=== PATIENT | female | born 1945 | race Caucasian/White ===

== ENCOUNTER 2021-12-17 16:41 | Outpatient (CLI) | payer MEDICARE, BC, SELFPAY ==
--- OUTSIDE RECORDS SUMMARY | 2021-12-17 07:48 | XMS_ITS | Encounter Summary ---
:1945 Author Organization [facility] Address [address] [address] Care Team Providers Name Role Phone Corey Josue MD Primary Care Provider [phone] Reason for Visit Auth/Cert Specialty Diagnoses / Procedures Referred By Contact Refer red To Contact Surgery Diagnoses HYPERONICITY OF THE BLADDER AND BATTERY EXCHANGE [facility] Procedures REPLACE GENERATOR STIMULATOR (LOCATION) [address] [place] [address] Phone: Referral ID Status Reason Start Date Expiration Date Visits Requ ested Visits Authorized [id number] 1 1 Encounter Details Date Type Department Care Team Description 01/13/[address] [facility] Allen Avendano I NTERSTIM GENERATOR [place] [facility] [address] [place] [address] [place] [address] (Wo rk) Surgery Details Date/Time Status Location OR Service Patient Case Class Case Type Trauma Class Case? 01/13/18 11:30 Posted Z SH SD SD 23 Urology Same Day AM Surgery Panel 1 Procedure LRB Anes Op Region Wound Class Commen ts INTERSTIM GENERATOR REPLACEMENT Left MAC with Local Sacrum I-Clean Surgeon Surgeon Role Service Panel Allen Avendano MD Primary Urology 1 Special Needs SENT TO [facility] NO CARD BUILT documented in this encounter Social History Tobacco Use Types Packs/Day Years Used Date Never Smoker Smokeless Tobacco: Never Used Alcohol Use Standard Drinks/Week Comments Yes 0 (1 standard drink = 0.6 oz pure alcoho l) rare Alcohol Habits Answer Date Recorded How often do you have a drink containing alcohol? Not asked How many drinks containing alcohol do you have on a typical Not asked day when you are drinking? How often do you have six or more drinks on one occasion? No t asked Comment: rare 01/12/2018 Sex Assigned at Date Recorded Not on file documented as of this encounter Last Filed Vital Signs Vital Sign Reading Time Taken Comments Blood Pressure 149/81 01/13/2018 2:00 PM CDT Pulse - - Temperature 36.7 ??C (98 ??F) 01/13/2018 1:00 PM CDT Respiratory Rate 20 01/13/2018 2:00 PM CDT Oxygen Saturation 97% 01/13/2018 2:00 PM CDT Inhaled Oxygen Concentration - - Weight 93.9 kg (207 lb) 01/13/2018 10:17 AM CDT Height 167.6 cm (5' 6) 01/13/2018 10:17 AM CDT Body Mass Index 33.41 01/13/2018 10:17 AM CDT documented in this encounter Discharge Instructions Discharge InstructionsWinter Ling RN - 01/13/2018 12:59 PM CDT Same Day Surgery Discharge Instructions for Sedation and General Anesthesia ?? It's not unusual to feel dizzy, light-headed or faint for up to 24 hours after surgery or while taking pain medication. If you have these symptoms: sit for a few minutes before standing and have someone assist you when you get up to walk or use the bathroom. ?? You should rest and relax for the next 24 hours. We recommend you make arrangements to have an adult stay with you for at least 24 hours after your discharge. Avoid hazardous and strenuous activity. ?? DO NOT DRIVE any vehicle or operate mechanical equipment for 24 hours following the end of your surgery. Even though you may feel normal, your reactions may be affected by the medication you have received. ?? Do not drink alcoholic beverages for 24 hours following surgery. ?? Slowly progress to your regular diet as you feel able. It's not unusual to feel nauseated and/or vomit after receiving anesthesia. If you develop these symptoms, drink clear liquids (apple juice, maddie faina, broth, 7-up, etc. ) until you feel better. If your nausea and vomiting persists for 24 hours, please notify your surgeon. ?? All narcotic pain medications, along with inactivity and anesthesia, can cause constipation. Drinking plenty of liquids and increasing fiber intake will help. ?? For any questions of a medical nature, call your surgeon. ?? Do not make important decisions for 24 hours. ?? If you had general anesthesia, you may have a sore throat for a couple of days related to the breathing tube used during surgery. You may use Cepacol lozenges to help with this discomfort. If it worsens or if you develop a fever, contact your surgeon. ?? If you feel your pain is not well managed with the pain medications prescribed by your surgeon, please contact your surgeon's office to let them know so they can address your concerns. InterStim Discharge Instruction General information: ?? Your incision may be sore and tender for 2 weeks. ?? You may shower starting tomorrow ?? Your incision was closed using a liquid adhesive. It's important not to scratch, rub or pick the film. Also, do not apply lotions or creams to the area. Activity: ?? Reduce normal daily activity for the first week. No excessive bending, twisting or bouncing. ?? Walking and light exercise is permissible. ?? No lifting, pulling or pushing objects heavier than 10 lbs. No vacuuming, carrying groceries or laundry baskets for 3-4 weeks. ?? No strenuous exercise for 3-4 weeks ?? No sexual intercourse for 1-2 weeks. Contact your surgeon for the following: ?? A temperature above 101??F. ?? Pain not relieved by medication ?? Rash ?? Nausea or vomiting ?? Swelling, excessive drainage, warmth at the incisional site Follow up care: The [employer] cash applications representative will instruct you about your InterStim device. Please contact them withany questions. Your first follow up appointment will be with a nurse in your surgeon's office in 1-2weeks. You will then see your surgeon for a follow up in one month. documented in this encounter Medications at Time of Discharge Medication Sig Dispensed Refills Start Date End Date ASPIRIN PO Take 81 mg by mouth 0 daily CLONIDINE HCL PO Take 0.5-1 mg by 0 mouth 2 times daily estradiol (VAGIFEM) [address] Place 10 mcg 0 MCG TABS vaginal tablet vaginally twice a week fluticasone (FLOVENT Inhale 1 puff into 0 HFA) 220 MCG/ACT the lungs 2 times Inhaler daily lisinopril-hydrochlorot Take 1 tablet by 0 hiazide mouth daily (PRINZIDE/ZESTORETIC) 20-25 MG per tablet MIRABEGRON ER PO Take 50 mg by mouth 0 daily oxyCODONE IR Take 1 tablet (5 mg) 12 tablet 0 01/13/2018 (ROXICODONE) 5 MG by mouth every 6 tabletIndications: OAB hours as needed for (overactive bladder) pain SIMVASTATIN PO Take 40 mg by mouth 0 At Bedtime VITAMIN D, Take 1,000 Units by 0 CHOLECALCIFEROL, PO mouth daily zinc gluconate 50 MG Take 50 mg by mouth 0 tablet daily ZOLPIDEM TARTRATE PO Take 10 mg by mouth 0 nightly as needed for sleep cephALEXin (KEFLEX) 500 Take 1 capsule (500 15 capsule 0 01/18/2018 MG capsuleIndications: mg) by mouth 3 times OAB (overactive daily for 5 days bladder) documented as of this encounter Nursing Notes Winter Ling RN - 01/13/2018 1:28 PM CDT PNDS met, po per I&O sheet. Pt dressed, up in recliner and transported to Phase 2. documented in this encounter Miscellaneous Notes Op Note - Allen Avendano MD - 01/13/2018 1:06 PM CDT Procedure Date: 01/13/2018 PROCEDURE: InterStim generator replacement. PREOPERATIVE DIAGNOSIS: Overactive bladder, failing InterStim battery. POSTOPERATIVE DIAGNOSIS: Overactive bladder, failing InterStim battery. OPERATIVE NOTE: Informed consent was obtained from the patient. She was brought to the operating room, placed on the operating room table in the prone position. Pressure points were well padded and given intravenous sedation. A sterile prep and drape were applied. A surgical timeout was taken. The area over the InterStim generator was infiltrated with 0.25% Marcaine with epinephrine. Once adequate analgesia had been obtained, a skin incision was made. Dissection carried down to the generator. The pocket was opened, and the generator was delivered out through the wound. The lead was disconnected from the generator, cleaned and then placed into the new generator and secured with the targeting screwdriver. The new generator was placed back into the pocket after checking for hemostasis, which was excellent and impedance testing was done showing good readings. The pocket was closed with a running 2-0Vicryl and then the skin was closed with a 4-0 undyed Vicryl subcuticular stitch. Sterile Tegaderm was applied and the procedure was terminated at that point. She tolerated the procedure well and therewere no complications. BLOOD LOSS: 2 mL or less. Sponge counts and needle counts correct prior to and after closure. She will be discharged from the recovery room, should follow up with her local provider next for Tegaderm removal and see Riki in our office in 4-6 weeks for programming check. ALLEN AVENDANO MD MT: [place] Name: SUJATA KELLER MRN: [id number] Account: [id number] : 1945 Procedure Date: 01/13/2018 Document: [id number] Brief Op Note - Allen Avendano MD - 01/13/2018 1:00 PM CDT [facility] Urology Brief Operative Note Pre-operative diagnosis: HYPERONICITY OF THE BLADDER AND BATTERY EXCHANGE Post-operative diagnosis: Same Procedure: Procedure(s): INTERSTIM GENERATOR REPLACEMENT Surgeon: Allen Avendano MD, MD Janitor Caretaker(s): none Anesthesia: Local anesthesia with sedation Estimated blood loss: Minimal Total IV fluids: (See anesthesia record) Blood transfusion: No transfusion was given during surgery Total urine output: None Drains: None Specimens: None Implants: New interstim generator Findings: See dictation. Complications: None Condition: Stable Comments: See dictated operative report for full details. Allen Avendano MD documented in this encounter Plan of Treatment Not on filedocumented as of this encounter Procedures Procedure Name Priority Date/Time Associated Diagnosis Comme nts REPLACEMENT, PULSE 01/13/2018 12:05 PM HYPERONICITY OF THE GENERATOR, NEUROSTIMULATOR CDT BLADDER AND BA TTERY EXCHANGE Special Needs SENT TO [facility] - NO CARD BUILT LAB RESULT - HIM SCAN 12/23/2017 12:00 AM CDT EKG CARDIAC - HIM SCAN 12/23/2017 12:00 AM CDT documented in this encounter Results LAB RESULT - HIM SCAN (12/23/2017 12:00 AM CDT) Specimen (Source) Anatomical Location Collection Method / Collectio n Time Received Time / Laterality Volume 12/23/2017 Narrative This result has an attachment that is no t available. Provider Outside NON-BEAKER LAB TESTING EKG CARDIAC - HIM SCAN (12/23/2017 12:00 AM CDT) Specimen (Source) Anatomical Location Collection Method / Collectio n Time Received Time / Laterality Volume 12/23/2017 Narrative This result has an attachment that is no t available. Provider Outside ECG ORDERABLES documented in this encounter Visit Diagnoses Not on filedocumented in this encounter Administered Medications Inactive Administered Medications - up to 3 most recent administrations Medication Order MAR Action Action Date Dose Rate Site bupivacaine 0.25 % - Given 01/13/2018 12:47 3 mLs Operative EPINEPHrine 1:200,000 PM CDT Sit e/Surgical Site injection PRN, Starting on Thu01/13/18 at 1247, Intra-procedure fentaNYL (PF) (SUBLIMAZE) injection 25-5 0 mcg 25-50 mcg, Intravenous, EVERY 2 MIN PRN, other, acute pain while in PACU., Starting on Thu01/13/18 at 1257, MAX cumulative dose = 250 mcg. Use Fentanyl initially, as a short acting agent for acute pain cont rol. If insufficient, or a longer acting agent is needed, begin Morphine or [place] morphone if ordered. For ordered IV doses 1-100 mcg give IV Push undiluted over a minimum of 3-5 minutes., PACU fentaNYL (PF) (SUBLIMAZE) injection 25-5 0 mcg 25-50 mcg, Intravenous, EVERY 15 MIN PRN, other, acute pain while in Phase II, Starting on Thu01/13/18 at 1257, Indica tions: Sedated State, MAX cumulative dose = 250 mcg. Use Fentanyl initially, as a sh ort acting agent for acute pain control. If insufficient, or a longer acting agent i s needed, begin Morphine or Hydromorphone if ordered. For ordered IV doses 1-100 m cg give IV Push undiluted over a minimum of 3-5 minutes., Phase ll HYDROmorphone (PF) (DILAUDID) injection 0.3-0.5 mg 0.3-0.5 mg, Intravenous, EVERY 10 MIN NC N, other, acute pain.?May administer if Respiratory Rate is greater than 10, Sta rting on Thu01/13/18 at 1257, If fentanyl is also ordered, use HYDROmorphone if pa in control insufficient with fentanyl or a longer acting agent is needed. Max cumulative dose = 2 mg For ordered IV doses 0.1-4 mg give IV Push undiluted. Adminis ter each 2mg over 2-5 minutes., PACU/Phase II lactated ringers infusion at 100 mL/hr, Intravenous, CONTINUOUS, Continue until IV catheter is weaned, PACU/Phase II, Starting on Thu01/13/18 at 1300, Until Thu01/13/18 at 1619 meperidine (DEMEROL) injection 12.5 mg 12.5 mg, Intravenous, EVERY 15 MIN PRN, post anesthesia shivering, Starting on Thu01/13/18 at 1257, For 2 doses, Give IV P ush undiluted. 10-40 mg over 2-3 minutes, up to 125 mg over 3-15 minutes, PACU/Phase II naloxone (NARCAN) injection 0.1-0.4 mg 0.1-0.4 mg, Intravenous, EVERY 2 MIN PRN , opioid reversal, Starting on Thu01/13/18 at 1257, For 24 hours, For apnea or imminent respirato ry arrest: give 0.4 mg IV undiluted Q 2 minutes PRN until desired degree of reversal is obtained, stop opioid and notify provider. Continue monitoring until dischar ge are criteria met for a minimum of 2 hours. For severe sedation, decrease in respiratory depth, quality or Respiratory Rate greater than 8: give 0. 1 mg IV Q 2 minutes x 3 doses, stop opioid and notify provider. Try to minimize reversal of analg esia especially in end-of-life patients. Continue monitorin g until discharge criteria are met for a minimum of 2 hours. For ordered IV doses 0.1-2mg give IVP. Give each 0.4mg over 15 seconds in emergency situations. For non -emergent situations further dilute in 9mL of NS to facilitate titration of response., PACU/Phase II ondansetron (ZOFRAN) injection 4 mg 4 mg, Intravenous, EVERY 30 MIN PRN, neli sea, vomiting, Administer over 2-5 Minutes, Starting on Thu01/13/18 at 1257, For 2 doses, MAX total dose = 8 mg, including OR dosing. This is step 1 of nausea and vomiting manageme nt. If not resolved in 15 minutes, then go to step 2 [prochlorpera zine (COMPAZINE) if ordered]. Irritant. For ordered IV doses 0.1-4 mg, give IV Push undiluted over 2-5 minutes., PACU/Phase II ondansetron (ZOFRAN-ODT) ODT tab 4 mg 4 mg, Oral, EVERY 30 MIN PRN, nausea, vo miting, Starting on Thu01/13/18 at 1257, For 2 doses, MAX total dose = 8 mg, incl uding OR dosing. This is step 1 of nausea and vomiting management. If not resolved in 15 minutes , then go to step 2 [prochlorperazine (COMPAZINE) if ordered ]. With dry hands, peel back foil backing and gently remove tablet; do not push oral disintegrat ing tablet through foil backing; administer immediately on tongu e and oral disintegrating tablet dissolves in seconds; then swallow with saliva; liquid not requi red., PACU/Phase II ORAL Pain Medications - may administer a s ordered by surgeon for take home use CONTINUOUS PRN, Starting on Thu01/13/18 at 1257, Until Thu01/13/18 at 1619, May administer oral pain medications as ordered by surgeon for take home use. Discontinue IV pain medication prior to administration of oral pain medication., PACU/Phase II prochlorperazine (COMPAZINE) injection 5 mg 5 mg, Intravenous, EVERY 6 HOURS PRN, nausea, vomiting , Administer over 1-2 Minutes, Starting on Thu01/13/18 at 125 7, This is Step 2 of nausea and vomiting management. If nausea not resolved in 15 minutes, give metoclopramide (REGLAN) if ordered [step 3 of nausea and vomiting m anagement]. For ordered IV doses 0.1-10 mg, give IV Push undiluted. Each 5mg over 1 minute., PACU/ Phase II sterile water (bottle) Given 01/13/2018 12:26 PM 1,000 mLs Operative irrigation CDT Site/Surgical S ite PRN, Intra-procedure, Starting on Thu01/13/18 at 1226, Until Thu01/13/18 at 1328 documented in this encounter Active and Recently Administered Medications Times are shown in CDT. Scheduled Medication Order 01/11/2018 01/12/2018 01/13/2018 ceFAZolin (ANCEF) intermittent infusion 2 g in 100 mL dextrose PRE-MIX (COMPLETED) 1222 (Given - Provid er: Jeanne Reynolds, COUPON CLERK [employer]) 2 g, Intravenous, PRE-OP/PRE-PROCEDURE, Starting Thu01/13/18 at 1010, For 1 dose, Give first dose within 1 hour PRIOR to incision. If patient weight is greater than or equal to 120 kg increase dose to 3 g., Indications: Perioperative Pharmacoprophylaxis, Pre-proced ure oxyCODONE IR (ROXICODONE) tablet 5 mg 1400 (Canceled Entry - Provider: Orders Generic Provider - Comment: Automatically canceled at discontinue of medication order) 5 mg, Oral, ONCE, Thu01/13/18 at 1400, For 1 dose, May administer ONCE as needed for pain control or improvement in physical function.??Notify provider to assess for uncontrolled pain or?? analgesic side effects., Post-procedure Continuous Medication Order 01/11/2018 01/12/2018 01/13/2018 lactated ringers infusion 1300 ( Canceled Entry - Provider: Orders Generic Provider - Comment: Automatically canceled at discontinue of medication order) at 100 mL/hr, Intravenous, CONTINUOUS, C ontinue until IV catheter is weaned, PACU/Phase II, Starting Thu01/13/18 at 1300, Until Thu01/13/18 at 1619 PRN Medication Order 01/11/2018 01/12/2018 01/13/2018 bupivacaine 0.25 % - EPINEPHrine 1:200,000 injection (CANCELED) 1247 (Given - Provider: Allen Avendano MD) PRN, Starting Thu01/13/18 at 1247, Intra-procedure fentaNYL (PF) (SUBLIMAZE) injection 25-50 mcg 25-50 mcg, Intravenous, EVERY 2 MIN PRN, Starting Thu01/13/18 at 1257, other, acute pain while in PACU., MAX cumulative dose = 250 mcg. Use Fentanyl initially, as a short acting agent for acute pain co ntrol. If insufficient, or a longer acti ng agent is needed, begin Morphine or Hydromorphone if ordered. For ordered IV doses 1-100 mcg give IV Push undiluted over a minimum of 3-5 minutes., PACU fentaNYL (PF) (SUBLIMAZE) injection 25-50 mcg 25-50 mcg, Intravenous, EVERY 15 MIN PRN , Starting Thu01/13/18 at 1257, other, acute pain while in Phase II, MAX cumulative dose = 250 mcg. Use Fentanyl initially, as a short acting agent for acute sravani n control. If insufficient, or a longer acting agent is needed, begin Morphine or Hydromorphone if ordered. For ordered IV doses 1-100 mcg give IV Push undiluted over a minimum of 3-5 minutes., Phase ll HYDROmorphone (PF) (DILAUDID) injection 0.3-0.5 mg 0.3-0.5 mg, Intravenous, EVERY 10 MIN NC N, Starting Thu01/13/18 at 1257, Until Thu01/13/18 at 1619, other, acute pain.?May administer if Respiratory Rate is greater than 10, PACU/Phase II, If fenta nyl is also ordered, use HYDROmorphone i f pain control insufficient with fentanyl or a longer acting agent is needed. Max cumulative dose = 2 mg For ordered IV doses 0.1-4 mg give IV Push undiluted. Administer each 2mg over 2-5 minutes. meperidine (DEMEROL) injection 12.5 mg 12.5 mg, Intravenous, EVERY 15 MIN PRN, 2 doses, Starting Thu01/13/18 at 1257, Until Thu01/13/18 at 1619, post anesthesia shivering, PACU/Phase II, Give IV Push undiluted. 10-40 mg over 2-3 minutes, up to 125 mg over 3-15 minutes naloxone (NARCAN) injection 0.1-0.4 mg 0.1-0.4 mg, Intravenous, EVERY 2 MIN PRN , opioid reversal, Starting Thu01/13/18 at 1257, For 24 hours, For apnea or imminent respiratory arrest: give 0.4 mg IV undiluted Q 2 minutes PRN until desired d egree of reversal is obtained, stop opio id and notify provider. Continue monitoring until discharge are criteria met for a minimum of 2 hours. For severe sedation, decrease in respiratory depth, quality or Respiratory Rate greater than 8: giv e 0.1 mg IV Q 2 minutes x 3 doses, stop opioid and notify provider. Try to minimize reversal of analgesia especially in end-of-life patients. Continue monitoring until discharge criteria are met for a m inimum of 2 hours. For ordered IV doses 0.1-2mg give IVP. Give each 0.4mg over 15 seconds in emergency situations. For non-emergent situations further dilute in 9 mL of NS to facilitate titration of response., PACU/Phase II ondansetron (ZOFRAN) injection 4 mg(Linked Group 1) 4 mg, Intravenous, EVERY 30 MIN PRN, neli sea, vomiting, Administer over 2-5 Minutes, Starting Thu01/13/18 at 1257, For 2 doses, MAX total dose = 8 mg, including OR dosing. This is step 1 of nausea and v omiting management. If not resolved in 1 5 minutes, then go to step 2 [prochlorperazine (COMPAZINE) if ordered]. Irritant. For ordered IV doses 0.1-4 mg, give IV Push undiluted over 2-5 minutes., PACU/Phase II ondansetron (ZOFRAN-ODT) ODT tab 4 mg(Linked Group 1) 4 mg, Oral, EVERY 30 MIN PRN, nausea, vo miting, Starting Thu01/13/18 at 1257, For 2 doses, MAX total dose = 8 mg, including OR dosing. This is step 1 of nausea and vomiting management. If not resolved in 15 minutes, then go to step 2 [prochl orperazine (COMPAZINE) if ordered]. With dry hands, peel back foil backing and gently remove tablet; do not push oral disintegrating tablet through foil backing; administer immediately on tongue and ora l disintegrating tablet dissolves in seconds; then swallow with saliva; liquid not required., PACU/Phase II ORAL Pain Medications - may administer as ordered by surgeon for take home use CONTINUOUS PRN, Starting Thu01/13/18 at 1257, Until Thu01/13/18 at 1619, May administer oral pain medications as ordered by surgeon for take home use. Discontinue IV pain medication prior to administration of oral pain medication., PACU/Phase II prochlorperazine (COMPAZINE) injection 5 mg 5 mg, Intravenous, EVERY 6 HOURS PRN, na usea, vomiting, Administer over 1-2 Minutes, Starting Thu01/13/18 at 1257, This is Step 2 of nausea and vomiting management. If nausea not resolved in 15 minutes , give metoclopramide (REGLAN) if ordere d [step 3 of nausea and vomiting management]. For ordered IV doses 0.1-10 mg, give IV Push undiluted. Each 5mg over 1 minute., PACU/Phase II sterile water (bottle) irrigation (CANCELED) 1226 (Given - Provider: Allen Avendano MD) PRN, Intra-procedure, Starting Thu01/13/18 at 1226, U ntil Thu01/13/18 at 1328 Linked Groups Order Group 1: ondansetron (ZOFRAN-ODT) ODT tab 4 mgJump to med 4 mg, Oral, EVERY 30 MIN PRN, nausea, vo miting, Starting Thu01/13/18 at 1257, For 2 doses
MAX total dose = 8 mg, including OR dosing. This is step 1 of nausea and vomiting management.&nbsp ; If not resolved in 15 minutes, th en go to step 2 [prochlorperazine (COMPAZINE) if ordered]. With dry hands, peel back foil backing and gently remove tablet; do not push oral disinteg rating tablet through foil backing; admi nister immediately on tongue and oral disintegrating tablet dissolves in seconds; then swallow with saliva; liquid not required.
PACU/Phase II Or ondansetron (ZOFRAN) injection 4 mgJump to med 4 mg, Intravenous, EVERY 30 MIN PRN, neli sea, vomiting, Administer over 2-5 Minutes, Starting Thu01/13/18 at 1257, For 2 doses
MAX total dose = 8 mg, including OR dosing. This is step 1 of naus ea and vomiting management. I f not resolved in 15 minutes, then go to step 2 [prochlorperazine (COMPAZINE) if ordered]. Irritant. For ordered IV doses 0.1-4 mg, give IV Push undiluted over 2-5 minutes.
PACU/Phase II documented in this encounter Care Teams Catalytic Case Operator Relationship Specialty Start Date End Date Corey Josue MD PCP - General Emergency Medicine 12/30/17 [facility] [address] [place] [address] documented as of this encounter
--- OUTSIDE RECORDS SUMMARY | 2021-12-17 07:48 | XMS_ITS | Clinical Summary ---
:1945 Author Organization [place] Address Replaced by [facility] [place] [address] Care Team Providers Name Role Phone Corey Josue MD Primary Care Provider [phone] Allergies Active Allergy Reactions Severity Noted Date Comments Adhesive Tape Itching 01/12/2018 Nickel Itching 01/12/2018 Thimerosal Itching 01/12/2018 Medications Medication Sig Dispensed Refills Start Date End Date Status lisinopril-hydrochlor Take 1 tablet by 0 Active othiazide mouth daily (PRINZIDE/ZESTORETIC) 20-25 MG per tablet ZOLPIDEM TARTRATE PO Take 10 mg by mouth 0 Active nightly as needed for sleep MIRABEGRON ER PO Take 50 mg by mouth 0 Active daily estradiol (VAGIFEM) Place 10 mcg 0 Active 10 MCG TABS vaginal vaginally twice a tablet week CLONIDINE HCL PO Take 0.5-1 mg by 0 Active mouth 2 times daily SIMVASTATIN PO Take 40 mg by mouth 0 Active At Bedtime zinc gluconate 50 MG Take 50 mg by mouth 0 Active tablet daily VITAMIN D, Take 1,000 Units by 0 Active CHOLECALCIFEROL, PO mouth daily ASPIRIN PO Take 81 mg by mouth 0 Active daily fluticasone (FLOVENT Inhale 1 puff into 0 Active HFA) 220 MCG/ACT the lungs 2 times Inhaler daily oxyCODONE IR Take 1 tablet (5 12 tablet 0 01/13/2018 Active (ROXICODONE) 5 MG mg) by mouth every tabletIndications: 6 hours as needed OAB (overactive for pain bladder) Social History Tobacco Use Types Packs/Day Years [...] Assigned at Date Recorded Not on file Last Filed Vital Signs Vital Sign Reading [...] Mass Index 33.41 01/13/2018 10:17 AM CDT Plan of Treatment Not on file Medical Devices Implanted Type Area Engineering Model Maker Device Shelf Model / Identifier Expiration Serial / Date Lot Stimulator Neuro Inter-Stim [id number] Neurology Left: [employer] 02/26/2019 3058 / Implanted: Qty: 1 on 01/13/2018 by Allen Nye MD at [facility] device Sacrum [id number] / Explanted Type Area Engineering Model Maker Device Shelf Model / Identifier Expiration Serial / Date Lot Interstim Neurotransmitter Left: Explanted: Qty: 1 on 01/13/2018 at [facility] Sacrum Insurance Payer Benefit Plan / Subscriber ID Effective Dates Phone Addre ss Type Group MEDICARE MEDICARE [id number] 2017-Prese [phone] ATTN CL AIMS Medicare nt 0 [address] [place] [address] BCBS BCBS FEDERAL [id number] 2015-Nadir [phone] [address] [address] PPO EMPLOYEE t 0 [facility] [place] [address] Care Teams Head Neck Surgeon Relationship Specialty Start Date End Date Corey Josue MD PCP - General Emergency Medicine 12/30/17 [facility] [address] [place] [address]
--- OUTSIDE RECORDS SUMMARY | 2021-12-17 07:48 | XMS_ITS | Encounter Summary ---
:1945 Author Organization [place] Address [address] [facility] [place] [address] Care Team Providers Name Role Phone Corey Josue MD Primary Care Provider [phone] Reason for Visit Auth/Cert Specialty Diagnoses / Procedures Referred By Contact Refer red To Contact Surgery Diagnoses HYPERONICITY OF THE BLADDER AND BATTERY EXCHANGE Sh Pe riop Services Procedures REPLACE GENERATOR STIMULATOR (LOCATION) [address], [address] [place] [address] Phone: Referral ID Status Reason Start Date Expiration Date Visits Requ ested Visits Authorized [id number] 1 1 Encounter Details Date Type Department Care Team Description 01/13/2018 Hospital Encounter [facility] Renetta Avendano OAB (overactive [place] Phase II MD Jan bladder) (Primary [address] [facility] D[facility]) [place] [facility] [id number] [address] [phone] [address] [place] [address] Social History Tobacco Use Types Packs/Day Years [...] the incisional site Follow up care: The [employer] employee's representative will instruct you about your InterStim [...] this encounter Miscellaneous Notes Op Note - Renetta Avendano MD - 01/13/2018 1:06 PM CDT [...] office in 4-6 weeks for programming check. RENETTA AVENDANO MD MT: EC Name: SUJATA KELLER MRN: [id number] Account: [id number] : 1945 Procedure Date: 01/13/2018 Document: [id number] Brief Op Note - Renetta Avendano MD - 01/13/2018 1:00 PM CDT [facility] [place] Brief Operative Note Pre-operative diagnosis: HYPERONICITY OF THE BLADDER AND BATTERY EXCHANGE Post-operative diagnosis: Same Procedure: Procedure(s): INTERSTIM GENERATOR REPLACEMENT Surgeon: Renetta Avendano MD, MD Mat Gauger(s): none Anesthesia: Local anesthesia with sedation Estimated blood loss: Minimal Total IV fluids: (See anesthesia record) Blood transfusion: No transfusion was given during surgery Total urine output: None Drains: None Specimens: None Implants: New interstim generator Findings: See dictation. Complications: None Condition: Stable Comments: See dictated operative report for full details. Renetta Avendano MD documented in this encounter Plan of Treatment Not on filedocumented as of this encounter Procedures Procedure Name Priority Date/Time Associated Diagnosis Comme nts REPLACEMENT, PULSE 01/13/2018 12:05 PM HYPERONICITY OF THE GENERATOR, NEUROSTIMULATOR CDT BLADDER AND BA TTERY EXCHANGE Special Needs SENT TO [facility] - NO CARD BUILT LAB RESULT - [...] ORDERABLES documented in this encounter Visit Diagnoses Diagnosis OAB (overactive bladder) - Primary Hypertonicity of bladder documented in this encounter Administered Medications Inactive Administered Medications - up to 3 most recent administrations Medication Order MAR Action Action Date Dose Rate Site fentaNYL (PF) (SUBLIMAZE) injection 25-5 0 mcg 25-50 mcg, Intravenous, EVERY 2 MIN PRN, other, acute pain while in PACU., Starting on Thu01/13/18 at 1257, MAX cumulative dose = 250 mcg. Use Fentanyl initially, as a short acting agent for acute pain cont rol. If insufficient, or a longer acting agent is needed, begin Morphine or [place] morphone if ordered. For ordered IV doses [...] mg 0.3-0.5 mg, Intravenous, EVERY 10 MIN MS N, other, acute pain.?May administer if Respiratory [...] 5mg over 1 minute., PACU/ Phase II documented in this encounter Active and Recently Administered Medications Times are shown in CDT. Scheduled Medication Order 01/11/2018 01/12/2018 01/13/2018 ceFAZolin (ANCEF) intermittent infusion 2 g in 100 mL dextrose PRE-MIX (COMPLETED) 1222 (Given - Provid er: Jeanne Reynolds, DEALERSHIP MANAGER PSYCHIATRIC NURSE) 2 g, Intravenous, PRE-OP/PRE-PROCEDURE, Starting Thu01/13/18 at [...] 1:200,000 injection (CANCELED) 1247 (Given - Provider: Renetta Avendano MD) PRN, Starting Thu01/13/18 at 1247, [...] mg 0.3-0.5 mg, Intravenous, EVERY 10 MIN MS N, Starting Thu01/13/18 at 1257, Until Thu01/13/18 [...] sea, vomiting, Administer over 2-5 Minutes, Starting 01/13/18 at 1257, For 2 doses, MAX total [...] (bottle) irrigation (CANCELED) 1226 (Given - Provider: Renetta Avendano MD) PRN, Intra-procedure, Starting Thu01/13/18 at [...] II documented in this encounter Care Teams Design Transferrer Relationship Specialty Start Date End Date Corey Jsoue MD PCP - General Emergency Medicine 12/30/17 [facility] [address] [place] [address] documented as of this encounter
--- OUTSIDE RECORDS SUMMARY | 2021-12-17 07:48 | XMS_ITS ---
:1945 Author Care Team Providers Name Role Phone ADDIE BAEZ MD Primary Care Provider [phone] Allergies Code Code System Name Reaction Severity Status Onset NKDA ? Medications Name Status Start Date Stop Date ? ? albuterol Active ? Not available clonidine HCl 0.2 mg tablet Active ? Not available famotidine 20 mg tablet Active ? Not avai lable Flovent HFA 110 mcg/actuation aerosol inhaler Active ? Not available fluticasone propionate 50 mcg/actuation nasal Active ? Not available spray,suspension fluvoxamine 100 mg tablet Active ? Not av ailable Fluzone High-Dose (PF) 180 mcg/0.5 mL intramuscular Acti ve ? Not available syringe Fluzone High-Dose Quad (PF) 240 mcg/0.7 mL IM Active ? Not available syringe Gemtesa 75 mg tablet Active ? Not availab le Take 1 tablet every day by oral route. lisinopril 20 mg-hydrochlorothiazide 25 mg tablet Active ? Not available metformin 500 mg tablet Active ? Not avai lable montelukast 10 mg tablet Active ? Not dhara ilable Myrbetriq 50 mg tablet,extended release Active ? Not available Shingrix (PF) 50 mcg/0.5 mL intramuscular suspension, kit Active ? Not available simvastatin 40 mg tablet Active ? Not dhara ilable zolpidem 10 mg tablet Active ? Not availa ble Problems Name Status Onset Date Source ? Urge Incontinence of Urine Active 06/01/2018 Histo ry Increased Frequency of Urination Active 06/01/2018 History Overactive Bladder Active 06/01/2018 History Disorder Due to Type 2 Diabetes Mellitus Active 019 History Hypertensive Disorder Active 10/19/2018 History Procedures Date Name Performed by ? ? Colonoscopy Information not avai lable Notes: none as of 12-14-20 Results Lab Results None recorded. Past Encounters 07/03/2020 Increased Frequency of Urination; Overac tive Bladder Eliana Donaldson, PAC: [address] [place] [address], Ph. Social History Tobacco Smoking Status Never Smoker Vaccine List Vaccine Type pneumococcal polysaccharide PPV23 06/26/2014 Plan of Care Reminders Provider Appointments None recorded. ? ? Lab None recorded. ? ? Referral None recorded. ? ? Procedures None recorded. ? ? Surgeries None recorded. ? ? Imaging None recorded. ? ? Vitals 07/03/2020 09:20AM ESTABLISHED 20 Height Weight BMI 5 ft 6 in 210 lbs 33.9 kg/m2 12/01/2019 09:30AM PROCEDURE 30 Height 5 ft 6 in 11/02/2019 09:00AM PROCEDURE 30 Height 5 ft 6 in 09/30/2019 09:00AM PROCEDURE 30 Height Weight BMI 50 ft 6 in 200 lbs 0.4 kg/m2
--- OUTSIDE RECORDS SUMMARY | 2021-12-17 07:48 | XMS_ITS | Clinical Summary ---
:1945 Author Organization [facility] [place] [address] Care Team Providers Name Role Phone Corey Josue MD Primary Care Provider Allergies Active Allergy Reactions Severity Noted Date Comments Adhesive Itching 09/06/2012 Nickel Itching 09/18/2012 Metal allergy t o cheap earrings, ears itch. Unknown-Follow Up Needed Itching 09/18/2012 the rmerosol (Include Details In Comments) Medications Medication Sig Dispensed Refills Start Date End Date Status cloNIDine (CATAPRES) Take 0.2 mg by 0 Active 0.2 mg tablet mouth 2 times daily. FLUTICASONE PROPIONATE Inhale 2 Puffs by 0 Active (FLOVENT HFA INHL) mouth 2 times daily. Levothyroxine 50 mcg Take 1 Cap by 0 Active cap mouth once daily. zolpidem (AMBIEN) 10 mg Take 10 mg by 0 Active tablet mouth at bedtime if needed. estradiol (VAGIFEM) 10 Insert 10 mcg 0 Active mcg tab vaginal tablet into the vagina once daily. Twice a week as directed aspirin chewable 81 mg Take 81 mg by 0 Active chewable tablet mouth once daily with a meal. Take 1 tablet by mouth daily cholecalciferol Take 2,000 Units 0 Active (VITAMIN D3) 1,000 unit by mouth once capsule daily. albuterol (PROVENTIL; Inhale 2.5 mg via 0 Active VENTOLIN) 5 mg/mL a nebulizer every (0.5%) neb solution 4 hours if needed. lisinopril-hydrochlorot Take 1 tablet by 0 Active hiazide, 20-25 mg, mouth once daily. (PRINZIDE, ZESTORETIC) 20-25 mg per tablet mirabegron Take 50 mg by 0 Activ e EXTENDED-release mouth once daily. (MYRBETRIQ) 50 mg tablet venlafaxine (EFFEXOR Take 150 mg by 0 Active XR) 150 mg mouth once daily Extended-Release with a meal. capsule zinc gluconate 50 mg Take 50 mg by 0 Active tablet mouth once daily. simvastatin (ZOCOR) 40 Take 40 mg by 0 Active mg tablet mouth at bedtime. escitalopram oxalate Take 10 mg by 3 07/30/2017 Active (LEXAPRO) 10 mg tablet mouth once daily. fluvoxaMINE (LUVOX) 100 Take 1 tablet by 0 0 Active mg tablet mouth at bedtime. Take one and one half capsule daily Active Problems Problem Noted Date History of right breast cancer 10/20/2019 Immunizations Name Administration Dates Next Due Pneumococcal, Unspecified 01/13/2012 Family History Medical History Relation Name Comments Atrial fibrillation Brother Cancer-prostate Brother Cancer-ovarian Mother Cancer-breast No Family History Cancer-colon No Family History Cancer-pancreatic No Family History Melanoma No Family History Relation Name Status Comments Brother Daughter MS Mother Social History Tobacco Use Types Packs/Day Years Used Date Never Smoker Smokeless Tobacco: Never Used Alcohol Use Standard Drinks/Week Comments Yes 1 (1 standard drink = 0.6 oz pure alcoho l) occasional Alcohol Habits Answer Date Recorded How often do you have a drink containing alcohol? Not asked How many drinks containing alcohol do you have on a typical Not asked day when you are drinking? How often do you have six or more drinks on one occasion? No t asked Comment: occasional 10/20/2019 Sex Assigned at Date Recorded Not on file Obstetrics History Last Filed Vital Signs Vital Sign Reading Time Taken Comments Blood Pressure 177/75 10/20/2019 10:03 AM CDT Pulse 63 10/20/2019 10:03 AM CDT Temperature 37.4 ??C (99.4 ??F) 10/20/2019 10:03 AM CDT Respiratory Rate 18 10/20/2019 10:03 AM CDT Oxygen Saturation 95% 10/18/2015 9:13 AM CDT Inhaled Oxygen Concentration - - Weight 96.8 kg (213 lb 8 oz) 10/20/2019 10:03 AM CDT Height 167.6 cm (5' 6) 10/20/2019 10:03 AM CDT Body Mass Index 34.46 10/20/2019 10:03 AM CDT Plan of Treatment Health Maintenance Due Date Last Done Comments COVID-19 vaccine series (#1) 1945 Tdap 1957 Depression screening for age 12+ 1958 Hepatitis C screening for age 1001/04/1964 18-79 Tetanus booster 1966 Colonoscopy through age 75 1991 Lipids for age 45-75 1991 Mammogram for age 45-75 1991 Zoster (shingles) series for age 1001/04/1996 50+ (1 of 2) DEXA/DXA scan for age 65+ 2011 Medicare Wellness for age 65+ 2011 Pneumococcal series for age 65+ (2 01/12/2013 01/13/2012 - PCV) BMI (ht and wt on same day) for 10/19/2020 10/20/2019, 04/2018, age 18+ 10/16/2017, Additional history exists Influenza for age 65+ 11/14/2021 Medical Devices Implanted Type Area Soil Biology Teacher Device Shelf Model / Identifier Expiration Serial / Date Lot [id number] Alloderm 8x16cm Ready To Use [[id number]] Right: Diplopia [id number] / Implanted: Qty: 1 on 09/21/2012 at [facility] Breast [id number] / [id number] [[id number]] Right: Shon Pyrites [id number] / Implanted: Qty: 1 on 01/11/2013 at [facility] [employer] [id number] / [id number] Results Not on filefrom Last 3 Months Insurance Payer Benefit Plan / Subscriber ID Effective Dates Phone Addre ss Type Group MEDICARE PART B MEDICARE PART B [id number] 2010-Presen ATTN: CLAIMS - HB USE ONLY HB ONLY t [address] [place] [address] MEDICARE PART A MEDICARE PART A [id number] 2010-Presen ATTN: CLAIMS - HB USE ONLY HB ONLY t [address] [place] [address] MEDICARE - PB MEDICARE PB [id number] 2010-Presen ATT N: CLAIMS USE ONLY ONLY t [address] [place] [address] BLUE [place] [id number] 2015-Present [place] [address] [id number] [place] [address] Advance Directives Latest Code Status on File Code Status Date Activated Date Inactivated Comments Full Code 01/25/2013 10:06 AM 01/26/2013 2:26 AM Full Code 01/11/2013 7:00 AM 01/11/2013 3:02 PM Full Code 09/21/2012 6:52 PM 09/22/2012 4:34 PM Full Code 09/21/2012 9:45 AM 09/21/2012 6:52 PM Full Code 09/20/2012 5:09 PM 09/21/2012 9:45 AM Care Teams Dietary Clerk Relationship Specialty Start Date End Date Corey Josue MD PCP - General 10/05/12[address] [place] [address]
--- OUTSIDE RECORDS SUMMARY | 2021-12-17 07:48 | XMS_ITS | Encounter Summary ---
:1945 Author Organization [place] Address [address] [facility] [place] [address] Care Team Providers Name Role Phone Corey Josue MD Primary Care Provider [phone] Reason for Visit Auth/Cert Specialty Diagnoses / Procedures Referred By Contact Refer red To Contact Surgery Diagnoses HYPERONICITY OF THE BLADDER AND BATTERY EXCHANGE Sh Pe [facility]op Services Procedures REPLACE GENERATOR STIMULATOR (LOCATION) [address], [address] [place] [address] Phone: Referral ID Status Reason Start Date Expiration Date Visits Requ ested Visits Authorized [id number] 1 1 Encounter Details Date Type Department Care Team Description 01/13/2018 Anesthesia Event [facility] Omar Shell MD [facility] ANESTHESIA [address] [id number] [facility] PeriOP Ser Jeanne Lopez, BLIND ESCORT MEDICAL LIBRARY ASSISTANT [address] [id number] [address] [place] [address] Anesthesia Record Procedure Summary Procedure Name Responsible Anesthesia Start Anesthesia Stop Anesthesiologist Time Time INTERSTIM GENERATOR Omar Shell MD 01/13/18 1215 1308 REPLACEMENT (Left Sacrum) Events Date Time Event Comment 01/13/2018 1138 1215 An Start 1215 An Start Data 1228 MD Present 1231 AN INCISION 1302 an stop data 1308 An Stop Electronically s igned by Erin Cunha on January 13, 2018 1:08 PM Name Total fentaNYL (SUBLIMAZE) injection 50 mcg lidocaine 2% 40 mg midazolam 1mg/mL 2 mg ondansetron 2mg/mL 4 mg phenylephrine (PIO-SYNEPHRINE) injection 1 mg 400 mcg propofol (DIPRIVAN) injection 10 mg/mL vial 331 mg ceFAZolin (ANCEF) intermittent infusion 2 g in 100 mL dextrose PRE-MIX 2 g LR 650 mL Agents Name NO HELIOX O2 N2O Air Exp Sevoflurane Exp Isoflurane Exp Desflurane Exp N2O O2 Delivery Device Ins Sevoflurane Ins Isoflurane Ins Desflurane O2 Auxiliary Blood No blood administrations on file. Lines, Drains, and Airways Type Details Placement Removal Incision/Surgical Site 01/13/18; 1238; Left, 01/13/18 1238 by Upper; Buttocks Binta Hubbard RN Peripheral IV 01/13/18; 1130; 20 G; 01/13/18 1130 by 01/13/18 1322 by Left; Hand; Geraldine Dos Santos, RN Sophia Ling aroruth Hernandez, Chlorhexidine; RN Tolerated well documented in this encounter Social History Tobacco [...] on file documented as of this encounter OR Notes Anesthesia Postprocedure Evaluation - Suleman, Omar Carrillo MD - 01/13/2018 2:59 PM CDT Patient: Elsiee Keller Procedure(s): INTERSTIM GENERATOR REPLACEMENT Diagnosis:HYPERONICITY OF THE BLADDER AND BATTERY EXCHANGE Diagnosis Additional Information: No value filed. Anesthesia Type: MAC Note: Anesthesia Post Evaluation Patient location during evaluation: PACU Patient participation: Able to fully participate in evaluation Level of consciousness: awake and alert Pain management: adequate Airway patency: patent Cardiovascular status: acceptable Respiratory status: acceptable Hydration status: acceptable PONV: none Anesthetic complications: None Last vitals: Vitals: 01/13/18 1315 01/13/18 1327 01/13/18 1400 BP: 99/54 141/71 149/81 Resp: 26 26 20 Temp: SpO2: 92% 97% 97% Electronically Signed By: Omar Shell MD January 13, 2018 2:59 PM Anesthesia Preprocedure Evaluation - Omar Shell MD - 01/13/2018 11:22 AM CDT Anesthesia Evaluation . Pt has had prior anesthetic. No history of anesthetic complications ROS/MED HX ENT/Pulmonary: (+)asthma , . . (-) tobacco use, COPD and sleep apnea Neurologic: Comment: Post polio syndrome Cardiovascular: (+) hypertension----. : . . . :. . (-) CAD and dyslipidemia METS/Exercise Tolerance: Hematologic: Musculoskeletal: GI/Hepatic: (-) GERD and liver disease Renal/Genitourinary: (-) renal disease Endo: (+) type II DM thyroid problem hypothyroidism, Obesity, . (-) Type I DM Psychiatric: (+) psychiatric history depression Infectious Disease: Malignancy: Other: Physical Exam Normal systems: cardiovascular, pulmonary and dental Airway Mallampati: III TM distance: >3 FB Neck ROM: full Dental Comment: The patient denies any loose, chipped, or missing teeth. Cardiovascular Pulmonary Anesthesia Plan History & Physical Review History and physical reviewed and following examination; no interval change. ASA Status: 2 . NPO Status: > 8 hours Plan for MAC Reason for MAC: Deep or markedly invasive procedure (G8) PONV prophylaxis: Ondansetron (or other 5HT-3) Postoperative Care Postoperative pain management: Multi-modal analgesia. Consents Anesthetic plan, risks, benefits and alternatives discussed with: Patient.. . documented in this encounter Miscellaneous Notes Anesthesia Care Transfer Note - Erin Cunha APRN CRNA - 01/13/2018 1:08 PM CDT Patient: Sujata Keller Procedure(s): INTERSTIM GENERATOR REPLACEMENT Diagnosis: HYPERONICITY OF THE BLADDER AND BATTERY EXCHANGE Diagnosis Additional Information: No value filed. Anesthesia Type: MAC Note: Airway :Room Air Patient transferred to:PACU Comments: Vitals stable. Vitals: (Last set prior to Anesthesia Care Transfer) MEDICAL LIBRARY ASSISTANT VITALS 01/13/2018 1232 - 01/13/2018 1308 01/13/2018 Resp Rate (set): 10 Electronically Signed By: Erin Cunha APRN MEDICAL LIBRARY ASSISTANT January 13, 2018 1:08 PM documented in this encounter Plan of Treatment Not on filedocumented as of this encounter Visit Diagnoses Not on filedocumented in this encounter Administered Medications Inactive Administered Medications - up to 3 most recent administrations Medication Order MAR Action Action Date Dose Rate Site ceFAZolin (ANCEF) intermittent Given 01/13/2018 12:22 PM CDT 2 g infusion 2 g in 100 mL dextrose PRE-MIX Routine, 2 g, Intravenous, PRE-OP/PRE-PROCEDURE, Starting on Thu01/13/18 at 1010, For 1 dose, Give first dose within 1 hour PRIOR to incision. If patient weight is greater than or equal to 120 kg increase dose to 3 g., Indications: Perioperative Pharmacoprophylaxis, Pre-procedure fentaNYL (PF) (SUBLIMAZE) injection Given 01/13/2018 12:22 PM CDT 50 mcg PRN, moderate to severe pain, Administer over 3-5 Minutes, Starting on Thu01/13/18 at 1222, Anesthesia Intra-op lactated ringers infusion New Bag 01/13/2018 12:15 PM CDT Intravenous, CONTINUOUS PRN, Anesthesia Intra-op, Starting on Thu01/13/18 at 1215, Until Thu01/13/18 at 1308 lidocaine 2% injection (MDV) Given 01/13/2018 12:22 PM CDT 40 mg PRN, Starting on Thu01/13/18 at 1222, Anesthesia Intra-op midazolam (VERSED) injection Given 01/13/2018 12:15 PM CDT 2 mg Administer over 2 Minutes, PRN, anxiety, Starting on Thu01/13/18 at 1215, Anesthesia Intra-op ondansetron (ZOFRAN) injection Given 01/13/2018 12:57 PM CDT 4 mg PRN, nausea, vomiting, Administer over 2-5 Minutes, Starting on Thu01/13/18 at 1257, Anesthesia Intra-op phenylephrine (PIO-SYNEPHRINE) injection 1 Bolus 01/13 12:53 PM CDT 100 mcg mg 1 mg, CONTINUOUS PRN, Starting on Thu01/13/18 at 1238, Anesthesia Intra-op Bolus 01/13/2018 12:50 PM CDT 100 mcg Bolus 01/13/2018 12:45 PM CDT 100 mcg propofol (DIPRIVAN) Rate/Dose Change 01/13/2018 12:51 50 mcg/kg/min 2 8.2 mL/hr injection 10 mg/mL vial PM CDT CONTINUOUS PRN, Starting on Thu01/13/18 at 1222, Anesthesia Intra-op Rate/Dose Change 01/13/2018 12:43 PM CDT 75 mcg/kg/min 42.3 mL/hr Rate/Dose Change 01/13/2018 12:37 PM CDT 100 mcg/kg/min 56.3 mL/hr documented in this encounter Care Teams Executive Recruiter Relationship Specialty Start Date End Date Corey Josue MD PCP - General Emergency Medicine 12/30/17 [facility] [address] [place] [address] documented as of this encounter
--- OUTSIDE RECORDS SUMMARY | 2021-12-17 07:49 | XMS_ITS | Encounter Summary ---
:1945 Author Organization [facility] Address [address] [place] [address] Care Team Providers Name Role Phone Unavailable Primary Care Provider Unavailable Encounter Details Date Type Department Care Team Description 12/02/2013 Hospital Encounter HX [facility] Lionel Smtih M.D. [address] [place] [address], [address] [place] [address] (Wo rk) Social History Tobacco Use Types Packs/Day Years Used Date Smoking Tobacco: Never Assessed Sex Assigned at Date Recorded Female 08/14/2017 1:34 PM CDT documented as of this encounter Last Filed Vital Signs Vital Sign Reading Time Taken Comments Blood Pressure 158/80 12/02/2013 9:22 AM CDT Pulse - - Temperature - - Respiratory Rate - - Oxygen Saturation - - Inhaled Oxygen Concentration - - Weight 99.1 kg (218 lb 7.6 oz) 12/02/2013 9:22 AM CDT Height - - Body Mass Index 35.24 09/27/2013 11:13 AM CDT documented in this encounter Medications at Time of Discharge Medication Sig Dispensed Refills Start Date End Date aspirin (ADULT LOW DOSE Take 1 tablet by 0 2011 ASPIRIN) [address] tablet mouth daily. cholecalciferol Take 2 tablets by 0 05/13/2011 (cholecalciferol) 1,000 mouth daily. Unit tablet fluticasone propionate Inhale 2 Inhalers 2 0 04/17 (FLOVENT HFA INHL) (two) times a day. triamterene-hydroCHLOROthia Take 1 tablet by 0 zide (MAXZIDE-25) 37.5-25 mouth every morning. mg per tablet venlafaxine (EFFEXOR) 25 mg Take 1 tablet by 0 tablet mouth 2 (two) times a day. documented as of this encounter Consult Notes Naida Smith M.D. - 12/02/2013 8:41 AM CDT [id number] CHIEF COMPLAINT/REASON FOR VISIT Left gluteal pain. REFERRAL SOURCE Corey Josue MD. HISTORY OF PRESENT ILLNESS Ms. 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 She also has history for urinary incontinence for which she has a sacral stimulator. She r eports that she went to [place] in June and July and now subsequently looking back on things she realized that she was drinking tonic water which exacerbated her incontinence and so she was unable to goout and walk and do as many activities as she had hoped. Therefore she spent much of her time sitting on a very hard bench doing needle work as that was the area that provided her the most light. She noted that during that time she has began to develop pain in the left inferior gluteal region. The pain has persisted since that time although it has been improving over the past 6 weeks. Currently, she describes her pain as an achy discomfort that is located in the inferior left medial gluteal region. T his pain is worse when she goes up stairs or if she is sitting. She notes some mild discomfort with walking, but that typically is not as bothersome as walking up stairs or sitting. She rates her pain at its worst as a 7 or 8 out of 10 and at its best as a 0 out of 10. She does not have any pain at night when lying supine. She denies any pain radiating distal to the gluteal region, any paresthesias or any focal weakness in her left lower extremity. She has been using Tylenol which she finds to be helpful as well as ice which she also finds to be helpful. She has had 3 courses of prednisone and the last course she did feel was helpful for her and lasted longer than the 1st 2 courses. She denies any groin pain. She did have one session of physicaltherapy at [facility] at the beginning of August. MEDICATIONS Reviewed as per EMR. ALLERGIES Reviewed as per EMR. PAST MEDICAL/SURGICAL HISTORY 1. Polio. 2. Hypertension. 3. Hypothyroidism. 4. History of breast cancer. 5. Status post hysterectomy. 6. Urinary continence status post sacral nerve stimulator. 7. History of ankle arthrodesis. SOCIAL HISTORY Ms. Keller lives in [place]. She is retired. PHYSICAL EXAMINATION GENERAL: Pleasant 68-year-old female in no acute distress. NEUROLOGICAL: Oriented to person, place and time. Appropriate mood and affect. GAIT: She is antalgic favoring the right lower extremity. STRENGTH: All major muscle groups of the bilateral lower extremities have normal and symmetric muscle strength, bulk and tone except for -1 strength with testing of her right ankle dorsiflexors and right EHL. She has limited range of motion in her right ankle. She has atrophy noted primary primarily in her calf musculature on the right side as compared to the left. As well as except for trace weakness testing of her left hamstring which is limited by pain. REFLEXES: Bilateral upper and lower extremity muscle stretch reflexes are physiologic and symmetric.Plantar responses downgoing bilaterally. Upper extremities patellar tendon 0/0, Achilles -3/-3. STRAIGHT LEG RAISE: Straight leg raise is negative for radicular pain or paresthesias bilaterally. MUSCULOSKELETAL/HIP: Preserved hip range of motion on the left without pain. Negative Stinchfield's and negative Ethel's. PALPATION: There is tenderness to palpation directly over the ischium and near the insertion of the semimembranosus. IMPRESSION/REPORT/PLAN 1. Left inferior gluteal pain. Ms. Keller's symptoms and examination are most consistent with left proximal hamstring tendinopathy/ischial bursitis. This would correlate with the pain that she has walking up stairs as well as when sitting. She has no focal neurologic deficits in her left lower extremity. The findings in her right lower extremity are very consistent with post-polio syndrome. PLAN: 1. I am going to have Ms. Keller involved in physical therapy and have given her a detailed prescription for this today. We will work on a comprehensive rehabilitation program including hands-on techniques as well as flexibility for the hamstrings and hip external rotators. As her pain improves wewill also initiate a basic eccentric strengthening program for the left hamstrings. 2. Ms. Keller will continue to ice on a regular basis. 3. We are going to defer any imaging at the current time as Ms. Keller is improving. However, ifshe does not show improvement, we will likely consider proceeding with imaging when I see her in followup. Of note, she does have a sacral stimulator so we will not be able to proceed with an MRI. 4. I will plan on seeing Ms. Keller back in 2 months to assess her progress and she knows to be in contact with me prior to that time if she notes any worsening or worrisome symptoms which we went over in detail today. Ms. Keller voiced agreement and understanding with this plan. Naida Smith M.D./isabel cc: Corey Josue M.D. Electronically Signed By: NAIDA SMITH MD On: 12/05/2013 01:17 PM Modified by and Electronically Signed by: NAIDA SMITH MD On: 12/05/2013 01:17 PM Source: [facility] MHSDOLBEYNONRADSYS Document Id: [id number] documented in this encounter Miscellaneous Notes Miscellaneous - Naida Smith M.D. - 12/02/2013 9:58 AM CDT Ambulatory Patient Summary [address] [id number] Visit Information Name: KHRIS KELLERRUBAJENNIE BECKER [facility] Number: [id number] Current Date: 12/02/2013 09:58:49 Physicians Attending Provider: NAIDA SMITH MD Primary Care Provider: PCP, LEOBARDO BRIDGETT MATILDEAmy BECKER has been given the following list of follow-up instructions, medication list, and patient education materials: Follow-up Instructions Your Medications Here is a list of your medications. It is important to take your medications as directed. Use a pillbox or chart to help remind you to take your medications. Please let your doctor or nurse know if you have problems taking your medications. Medication/Strength How to Take Indications/Special Instructions/Comments/Notes for Patient Medication Changes/Routing cloNIDine (cloNIDine) ergocalciferol (Vitamin D2) Oral estradiol topical (Vagifem) 10 mcg, Vaginal, 2 times a week fluticasone (Flovent Diskus 50 mcg inhalation powder) Inhalation, two times a day hydrochlorothiazide (hydrochlorothiazide) Oral, once a day mirabegron (Myrbetriq) Oral, once a day multivitamin (multivitamin) Oral, once a day venlafaxine (Effexor XR) Oral, once a day Stop Taking the Following Medications: Medication list as of 12-02-13 09:58 Attention: If you have any medications at home that are not on this list, DO NOT take them until youcontact your provider for clarification. Give a copy of your medication list to your primary care provider. Update your medication list any time medications or doses are changed and carry your medication list at all times in case of emergency. Electronically Signed By: NAIDA SMITH MD Signed On:02-DEC-2013 09:57:53 Your Allergies & Intolerances Substance Reaction Symptoms Category Comments Nickel Environment Your Problem List Problem Status Onset Comments No Problems found Your Upcoming Appointments Date Time Location Provider No Appointments found Attention: Contact your local Clinic if further appointment detail needed. Your Goals/Additional instructions: Source: [facility] POWERCHART Document Id: [id number] Miscellaneous - Naida Smith M.D. - 12/02/2013 9:58 AM CDT Ambulatory Discharge Medication List [address] [id number] Visit Information Name: SUJATA KELLER [facility] Number: [id number] Visit Date: 12/02/2013 09:58:48 Attending Provider: NAIDA SMITH MD Primary Care Provider: PCP, SUJATA ZELAYA EUGENIO has been given the following list of medications: Your Medications It is important to take your medications as directed. Use a pill box or chart to help remind you to take your medications. Please let your doctor or nurse know if you have problems taking your medications. Medication/Strength How to Take Indications/Special Instructions/Comments/Notes for Patient Medication Changes/Routing cloNIDine (cloNIDine) ergocalciferol (Vitamin D2) Oral estradiol topical (Vagifem) 10 mcg, Vaginal, 2 times a week fluticasone (Flovent Diskus 50 mcg inhalation powder) Inhalation, two times a day hydrochlorothiazide (hydrochlorothiazide) Oral, once a day mirabegron (Myrbetriq) Oral, once a day multivitamin (multivitamin) Oral, once a day venlafaxine (Effexor XR) Oral, once a day Stop Taking the Following Medications: Medication list as of 12-02-13 09:58 Attention: If you have any medications at home that are not on this list, DO NOT take them until youcontact your provider for clarification. Give a copy of your medication list to your primary care provider. Update your medication list any time medications or doses are changed and carry your medication list at all times in case of emergency. Electronically Signed By: NAIDA SMITH MD Signed On:02-DEC-2013 09:57:53 Additional Information: Source: [facility] POWERCHART Document Id: [id number] Miscellaneous - Pastora Oakes - 12/02/2013 9:22 AM CDT Adult Web Portal Developer Intake/History Adult Web Portal Developer Intake/History Entered On: 12/02/2013 9:25 CDT Performed On: 12/02/2013 9:22 CDT by PASTORA OAKES Intake Systolic Blood Pressure : 158 mmHg (HI) Diastolic Blood Pressure : 80 mmHg NIBP Mean : 106 mmHg BP Location : Left upper extremity Blood Pressure Cuff Size : Regular Actual Weight : 99.1 kg(Converted to: 218 lb 8 oz) Weight Source : Standing scale Dosing Weight Clinic : 99.1 kg PASTORA OAKES - 12/02/2013 9:22 CDT General Info Information Given By : Patient Preferred Communication Mode : Verbal Languages : Dutch Is Patient Female and 13-50 no hysterectomy : No PASTORA OAKES - 12/02/2013 9:22 CDT Subjective Pain Symptoms : No PASTORA OAKES - 12/02/2013 9:22 CDT Dependent Habits Tobacco Use/Currently Using : No Exposure to Tobacco Smoke : Other: Never Smoking Status : Never smoker PASTORA OAKES - 12/02/2013 9:22 CDT [facility] Document Id: [id number] CDT!21 documented in this encounter Plan of Treatment Not on filedocumented as of this encounter Visit Diagnoses Not on filedocumented in this encounter
--- OUTSIDE RECORDS SUMMARY | 2021-12-17 07:49 | XMS_ITS | Encounter Summary ---
:1945 Author Organization [facility] Address [address] [place] [address] Care Team Providers Name Role Phone Unavailable Primary Care Provider Unavailable Encounter Details Date Type Department Care Team Description 05/14/2011 Hospital Encounter HX NO MAPPING Social History Tobacco Use Types Packs/Day Years Used Date Smoking Tobacco: Never Assessed Sex Assigned at Date Recorded Female 08/14/2017 1:34 PM CDT documented as of this encounter Medications at Time of Discharge Medication Sig Dispensed Refills Start Date End Date aspirin (ADULT LOW DOSE Take 1 tablet by 0 2011 ASPIRIN) [address] tablet mouth daily. cholecalciferol Take 2 tablets by 0 05/13/2011 (cholecalciferol) 1,000 mouth daily. Unit tablet fluticasone propionate Inhale 2 Inhalers 2 0 2 10/2011 (FLOVENT HFA INHL) (two) times a day. triamterene-hydroCHLOROthia Take 1 tablet by 0 zide (MAXZIDE-25) 37.5-25 mouth every morning. mg per tablet documented as of this encounter Plan of Treatment Not on filedocumented as of this encounter Visit Diagnoses Not on filedocumented in this encounter
--- OUTSIDE RECORDS SUMMARY | 2021-12-17 07:49 | XMS_ITS | Encounter Summary ---
:1945 Author Organization [facility] Address [address] [place] [id number] Care Team Providers Name Role Phone Unavailable Primary Care Provider Unavailable Reason for Visit Outpatient (Routine) - Closed Specialty Diagnoses / Procedures Referred By Contact Refer red To Contact Diagnoses Hyperhidrosis Focal Primary Venkatesh Mcnair M.D. [facility] Procedures LAUREL Botox A [address] [place] [address] Referral ID Status Reason Start Date Expiration Date Visits Requ ested Visits Authorized [id number] Closed 08/05/2017 08/05/2018 1 1 Encounter Details Date Type Department Care Team Description 08/18/2018 Procedure visit Department of Venkatesh Mcnair Dermatology lilia Estrella M.D. Primary (Primary Dx) [place], [place] [address] [facility] [address] [place] [id number] [phone] Social History Tobacco Use Types Packs/Day Years Used Date Smoking Tobacco: Never Sex Assigned at Date Recorded Female 08/14/2017 1:34 PM CDT documented as of this encounter Procedure Notes Do Welch M.D. - 08/18/2018 3:00 PM CDTAssociated Order(s): LAUREL BOTOX A PREOP INDICATION: TREATMENT Date of Surgery: 08/18/2018 Surgeon: Dr. Mcnair Shampoo Person: Dr. Do Welch M.D. [facility] Room[facility] Visit Type: Outpatient PostOp Diagnosis: Primary focal craniofacial hyperhidrosis Anatomic Location: Frontal, lateral, and the occipital scalp Procedure: Botulinum toxin injection Prior to the procedure, final verification of the patient identity and correct marked surgical site was performed. Procedural pause conducted to verify: correct patient identity, procedure to be performed and as applicable, correct side and site, correct patient position, and availability of implants, special equipment or special requirements. INFORMED CONSENT Discussed the risks, benefits, alternatives, and the necessity of other members of the healthcare team participating in the procedure. All questions answered and consent given. PATIENT EDUCATION Ready to learn, no apparent learning barriers were identified; learning preferences include listening. Explained diagnosis and treatment plan; patient expressed understanding of the content. Preoperative medications: None No anesthesia was used prior to the injections. The skin was prepped with alcohol. A 100-unit Botox vial was sterilely reconstituted in 10 cc of saline. The Botox was then injected in divided doses, 1 units per injection site with 100 injection site locations at the frontal,temporal, and occipital scalp. A total of 100 units of Botox were used. A total of 0 units of Botox were wasted (Lot Number: [id number], Expiration Date: 12/2020, Botox wasted by: NA, Witness to waste: NA). No complications. Patient tolerated the procedure well. Postoperative medications: None documented in this encounter Consult Notes Do Welch M.D. - 08/18/2018 3:00 PM CDT Referral Venkatesh Mcnair M.D. Chief Complaint Hyperhidrosis HISTORY OF PRESENT ILLNESS is a very pleasant 73 y.o. female who presents today for treatment of primary focal craniofacial hyperhidrosis. She was last seen by Dr. Mcnair on 08/14/2017, which does her 1st Botox injections. She tolerated it well and noted that it lasted through the summer months. The area of greatestactivity is on her posterior scalp. PHYSICAL EXAM Vitals:There were no vitals taken for this visit. General: No acute distress. Pleasant and cooperative. Alert and oriented. Skin: Examination limited to the face and scalp per patient request. There is visible perspiration along the posterior, lateral, and frontal hairline. IMPRESSION/REPORT/PLAN #1 Primary focal craniofacial hyperhidrosis She had excellent results with her 1st injection 1 year ago. We reconstituted 100 units of Botox with 10 cc of saline and performed 100 injections, 1 unit per injection, around the periphery of her hairline including the frontal, lateral, and posterior scalp. She tolerated the procedure well. She was advised full effect would likely take approximately 2 weeks. We will plan to see her back in 6-12 months for repeat injections. She will call with any questions or concerns. PROCEDURAL PAUSE Procedural pause conducted to verify: correct patient identity, procedure to be performed, and as applicable, correct side and site, correct patient position, and availability of implants, special equipment, or special requirements. PATIENT EDUCATION Ready to learn. No apparent learning barriers were identified. Learning preferences include listening. Explained diagnosis and treatment plan; patient/guardian of patient expressed understanding of thecontent. documented in this encounter Plan of Treatment Not on filedocumented as of this encounter Procedures Procedure Name Priority Date/Time Associated Diagnosis Comme nts LAUREL BOTOX A Routine 08/18/2018 3:00 PM Hyperhidrosis Focal Re sults for this CDT Primary procedure are i n the results section. documented in this encounter Results LAUREL Botox A (08/18/2018 3:00 PM CDT) Venkatesh Gutierrez M.D. - 08/18/2018 3:0 0 PM CDT Do Welch M.D. ? 08/18/2018 ??5:17 PM PREOP INDICATION: TREATMENT Date of Surgery: 08/18/2018 Surgeon: Dr. Mcnair Shampoo Person: Dr. Do Welch M.D. Location: [place] ?? Bldg:GO ?? Floor: 16 ?? Room:[facility] Visit Type: Outpatient PostOp Diagnosis: ??Primary focal cranio facial hyperhidrosis Anatomic Location: ??Frontal, lateral, a nd the occipital scalp Procedure: Botulinum toxin injection Prior to the procedure, final verificati on of the patient identity and correct marked surgical site was perform ed. Procedural pause conducted to verify: co rrect patient identity, procedure to be performed and as applicable, corre ct side and site, correct patient position, and availability of implants, special equipment or special requirements. INFORMED CONSENT Discussed the risks, benefits, alternati ves, and the necessity of other members of the healthcare team participa ting in the procedure. ?? All questions answered and consent given. PATIENT EDUCATION Ready to learn, no apparent learning bar riers were identified; learning preferences include listening. ??Explain ed diagnosis and treatment plan; patient expressed understanding of the c ontent. Preoperative medications: ??None No anesthesia was used prior to the inje ctions. ??The skin was prepped with alcohol. ??A 100-unit Botox vial was karla rilely reconstituted in 10 cc of saline. ??The Botox was then injec anastacia in divided doses, 1 units per injection site with 100 inject ion site locations at the frontal, temporal, and occipital scalp. ??A total of 100 units of Botox were used. ??A total of 0 units of Botox were wasted (Lot Number: ??[id number], Expiration Date: ?? 12/2020, Botox wasted by: ?? NA, Witness to waste: ??NA). ??No compli cations. ??Patient tolerated the procedure well. Postoperative medications: ??None Venkatesh Mcnair M.D. DERM PROCEDURE ORDERABLES documented in this encounter Visit Diagnoses Diagnosis Hyperhidrosis Focal Primary - Primary documented in this encounter Administered Medications Inactive Administered Medications - up to 3 most recent administrations Medication Order MAR Action Action Date Dose Rate Site onabotulinumtoxinA injection 100 Given 08/18/2018 3:15 PM 100 Un its Scalp Units (BOTOX) CDT 100 Units, intradermal, Once, On Thu08/18/18 at 1515, For 1 dose, Reconstitute in preservative-free saline at 10 cc per 100 units. documented in this encounter
--- OUTSIDE RECORDS SUMMARY | 2021-12-17 07:49 | XMS_ITS | Encounter Summary ---
:1945 Author Organization [facility] Address [address] [place] [address] Care Team Providers Name Role Phone Unavailable Primary Care Provider Unavailable Encounter Details Date Type Department Care Team Description 07/20/2017 Clinical Communication Department of Nyasia Schaefer, Dermatology in M.S., R.N. [place], [place] [address] [facility] [address] [place] [id number] [phone] Social History Tobacco Use Types Packs/Day Years Used Date Smoking Tobacco: Never Sex Assigned at Date Recorded Female 08/14/2017 1:34 PM CDT documented as of this encounter Miscellaneous Notes Telephone Encounter - Nyasia Schaefer R.N. - 07/20/2017 3:02 PM CDT INFORMATION DISCUSSED Mrs. Keller called with two requests. 1. She states that she talked to her insurance and it sounds as though the botox is covered. Can you please place the order? 2. She states that she cannot findthe 20% aluminum chloride over the counter. Her pharmacist states that it is a prescription Drysol. Can you please send this to her pharmacy? Her pharmacy has been set in [place]. Thank you. PLAN Mrs. Keller was informed that the appointment desk will contact her to schedule her appointment and the prescription will go to her pharmacy and she can contact them with questions. Disposition/Recommendation: provider notified Education: not applicable Caller agreeable to plan of care: yes The following references were used: none documented in this encounter Plan of Treatment Not on filedocumented as of this encounter Visit Diagnoses Not on filedocumented in this encounter
--- OUTSIDE RECORDS SUMMARY | 2021-12-17 07:49 | XMS_ITS | Encounter Summary ---
:1945 Author Organization [facility] Address [address] [place] [address] Care Team Providers Name Role Phone Unavailable Primary Care Provider Unavailable Encounter Details Date Type Department Care Team Description 08/04/2017 Abstract DATA ABSTRACTION Provider, Historical Social History Tobacco Use Types Packs/Day Years Used Date Smoking Tobacco: Never Sex Assigned at Date Recorded Female 08/14/2017 1:34 PM CDT documented as of this encounter Plan of Treatment Not on filedocumented as of this encounter Visit Diagnoses Not on filedocumented in this encounter
--- OUTSIDE RECORDS SUMMARY | 2021-12-17 07:49 | XMS_ITS | Clinical Summary ---
:1945 Author Organization [facility] Address [address] [place] [address] Care Team Providers Name Role Phone Unavailable Primary Care Provider Unavailable Source Comments Patient records contain information from all sites at [facility]. For routine questions regarding patient records, call [phone] during business hours, M-F 8:00 AM - 5:00 PM Central Time. Record requests for emergency care only can be directed to [phone] at any time.[facility] Allergies Active Allergy Reactions Severity Noted Date Comments Nickel Itching 04/30/2011 LW listed the a gent as Nickel (food) Penicillins Other (see comments) 05/13/2011 LW list ed: Penicillin Consult; july e penicillin and cephalospor in Thimerosal Itching 04/30/2011 Medications Medication Sig Dispensed Refills Start Date End Date Status aspirin (ADULT LOW DOSE Take 1 tablet by 0 2 Active ASPIRIN) [address] mouth daily. tablet venlafaxine XR (EFFEXOR Take 1-3 capsules 0 06/24/19 18 Active XR) 37.5 mg 24 hr by mouth daily. capsule For taper; start with 3 tabs daily for 1 week, then 2 tabs daily for 1 week, then 1 tab daily for 1 week, then stop. fluticasone propionate Inhale 2 Inhalers 0 2 Active (FLOVENT HFA INHL) 2 (two) times a day. glycopyrrolate in Apply topically 2 0 07/08/2017 Active Vanicream 0.5 % (two) times a day. Apply topically to affected areas along hairline and face lisinopril-hydroCHLOROt Take 1 tablet by 0 8 Active hiazide mouth daily. (PRINZIDE,ZESTORETIC) 20-25 mg per tablet mirabegron (MYRBETRIQ) Take 1 tablet by 0 08/11/2014 Active 50 mg 24 hr tablet mouth daily. simvastatin (ZOCOR) 40 Take 1 tablet by 0 06/24/2017 Active mg tablet mouth every evening. triamterene-hydroCHLORO Take 1 tablet by 0 2 Active thiazide (MAXZIDE-25) mouth every 37.5-25 mg per tablet morning. venlafaxine (EFFEXOR) Take 1 tablet by 0 09/27/2013 Active 25 mg tablet mouth 2 (two) times a day. cholecalciferol Take 2 tablets by 0 05/13/2011 Active (cholecalciferol) 1,000 mouth daily. Unit tablet zinc gluconate 50 mg Take by mouth 0 06/24/2017 Active tablet daily. Hospital, Clinic, or Other Ordered Dose Route Frequency Start Date End Date Status Facility Administered Medication onabotulinumtoxinA injection 100 Units ID Once 08/14/2017 Active 100 Units (BOTOX)Indications: Hyperhidrosis Immunizations Name Administration Dates Next Due H1N1 All Forms 02/06/2009 Social History Tobacco Use Types Packs/Day Years Used Date Smoking Tobacco: Never Sex Assigned at Date Recorded Female 08/14/2017 1:34 PM CDT Last Filed Vital Signs Vital Sign Reading Time Taken Comments Blood Pressure 158/80 12/02/2013 9:22 AM CDT Pulse - - Temperature - - Respiratory Rate - - Oxygen Saturation - - Inhaled Oxygen - - Concentration Weight 99.1 kg (218 lb 7.6 12/02/2013 9:22 AM oz) CDT Height 167.7 cm (5' 6.02) 09/27/2013 11:13 Vital si gn result AM CDT from Clinical No norberto. Body Mass Index 35.24 09/27/2013 11:13 AM CDT Plan of Treatment Health Maintenance Due Date Last Done Comments Bone Density Scan (Osteoporosis 1945 Screen) CT Colonography 1945 Cologuard 1945 Colonoscopy 1945 Colorectal Cancer Screening 1945 FIT 1945 Fasting Glucose for Diabetes 1945 Screening Hepatitis C Screening 1945 Mammogram 1945 Potassium Level 1945 Sodium Level 1945 Creatinine Level 05/13/2012 05/13/2011 DTaP,Tdap,and Td Vaccines (2 - Td 01/28/2021 01/28/2011 or Tdap) Depression Screening (Annual 03/16/2021 PHQ-2) Fall Risk Screen (Annual) 03/16/2021 COVID-19 Vaccine (5 - Booster for 08/31/2021 07/06/2021, , Moderna series) 05/27/2020, Additional history exists Influenza Vaccine (#1) 2021 01/07/2021, 12/16/2019, 03/07/2019, Additional history exists Pneumococcal vaccine (65+ years) Completed 10/29/2015, , 06/26/2014, Additional history exists Zoster Vaccines Completed 07/19/2019, 03/23/2019, 09/14/2006 Medical Devices Implanted Type Area Application Designer Device Shelf Model / Identifier Expiration Serial / Date Lot Medtronic-Stim Lead Tined Sns-Quad - Contreras [id number] Electrode Other/Legacy - Medtronic Implanted: Qty: 1 on 05/14/2011 See Implant Description Description: Device Application Designer - Medtr onic Neuro. Body Location - ?. Not Applicable. Device Status Text - ELECTRO [id number]. Medtronic Neurostimulator [id number] - Contreras [id number] Sacral Nerve Oth er/Legacy - See Medtronic Implanted: Qty: 1 on 06/25/2011 Stimulator Implant Description Description: Device Application Designer - Medtr onic Neuro. Body Location - ?. Not Applicable. Device Status Text - BLADDER [id number]. Insurance Payer Benefit Plan Subscriber ID Effective Phone Address Typ e / Group Dates MEDICARE MEDICARE A [id number] 2010-Pres [address] [place] [address] [facility] [employer] FEDERAL [id number] 2015-Prese [phone] [address] Indemnity [address] [address] [place] [address]
--- OUTSIDE RECORDS SUMMARY | 2021-12-17 07:49 | XMS_ITS | Encounter Summary ---
:1945 Author Organization [facility] Address [address] [place] [address] Care Team Providers Name Role Phone Unavailable Primary Care Provider Unavailable Encounter Details Date Type Department Care Team Description 06/23/2017 Hospital Encounter HX RST DERM FLOOR Cristy Khoury PRACTICE M.D. [address] [place] [address] (Wo rk) Social History Tobacco Use Types [...] (FLOVENT HFA INHL) (two) times a day. mirabegron (MYRBETRIQ) 50 Take 1 tablet by 0 07/15 mg 24 hr tablet mouth daily. triamterene-hydroCHLOROthia Take 1 tablet by 0 zide (MAXZIDE-25) 37.5-25 mouth every morning. mg per tablet venlafaxine (EFFEXOR) 25 mg Take 1 tablet by 0 tablet mouth 2 (two) times a day. venlafaxine XR (EFFEXOR XR) Take 1-3 capsules by 0 06/23/2017 37.5 mg 24 hr capsule mouth daily. For taper; start with 3 tabs daily for 1 week, then 2 tabs daily for 1 week, then 1 tab daily for 1 week, then stop. documented as of this encounter Plan of Treatment Not on filedocumented as of this encounter Visit Diagnoses Not on filedocumented in this encounter
--- OUTSIDE RECORDS SUMMARY | 2021-12-17 07:49 | XMS_ITS | Encounter Summary ---
:1945 Author Organization [facility] Address [address] [place] [address] Care Team Providers Name Role Phone Unavailable Primary Care Provider Unavailable Encounter Details Date Type Department Care Team Description 01/31/2005 Hospital Encounter HX NO MAPPING Social History Tobacco Use Types Packs/Day Years Used Date Smoking Tobacco: Never Assessed Sex Assigned at Date Recorded Female 08/14/2017 1:34 PM CDT documented as of this encounter Plan of Treatment Not on filedocumented as of this encounter Visit Diagnoses Not on filedocumented in this encounter
--- OUTSIDE RECORDS SUMMARY | 2021-12-17 07:49 | XMS_ITS | Encounter Summary ---
:1945 Author Organization [facility] Address [address] [place] [address] Care Team Providers Name Role Phone Unavailable Primary Care Provider Unavailable Reason for Referral Outpatient (Routine) - Pending Review Specialty Diagnoses / Procedures Referred By Contact Refer red To Contact Diagnoses Hyperhidrosis Focal Primary Venkatesh Mcnair M.D. [facility] Procedures LAUREL Botox A [address] [place] [address] Referral ID Status Reason Start Date Expiration Date Visits V isits Requested Authorized [id number] Pending 08/23/2020 08/24/2023 1 1 Review Reason for Visit Reason Comments Botulinum Toxin Injection Outpatient (Routine) - Closed Specialty Diagnoses / Procedures Referred By Contact Refer red To Contact Diagnoses Hyperhidrosis Focal Primary Venkatesh Mcnair M.D. [facility] Procedures LAUREL Botox A [address] [place], [place] [address] Referral ID Status Reason Start Date Expiration Date Visits Requ ested Visits Authorized [id number] Closed 07/16/2020 07/17/2023 1 1 Encounter Details Date Type Department Care Team Description 08/23/2020 Procedure visit Department of Venkatesh Mcnair Focal Dermatology lilia Estrella M.D. [place], [place] [address] [facility] [address] [place] [phone] Social History Tobacco Use Types Packs/Day Years Used Date Smoking Tobacco: Never Sex Assigned at Date Recorded Female 08/14/2017 1:34 PM CDT documented as of this encounter Procedure Notes Liam Olmos M.D. - 08/23/2020 1:00 PM CDT PREOP INDICATION: TREATMENT Date of Surgery: 08/23/2020 Surgeon: Dr. Mcnair Wedding Consultant: Dr. Olmos Location: [facility] Floor:16 Room:[facility] Visit Type: Outpatient PostOp Diagnosis: Primary focal [...] units of Botox were wasted (Lot Number: [id number], Expiration Date: 12/2022, Botox wasted by: NA, Witness to waste: NA). No complications. Patient tolerated the procedure well. Postoperative medications: None documented in this encounter Consult Notes Liam Olmos M.D. - 08/23/2020 1:00 PM CDT CHIEF COMPLAINT Hyperhidrosis Supervised by: Dr. Mcnair Correspondence to: Dr. Mcnair HISTORY OF THE PRESENT ILLNESS Sujata Hazel Keller is a pleasant 75 y.o. female who is seen in consultation at the request of Venkatesh Mcnair M.D. for treatment of primary focal craniofacial hyperhidrosis. She was last seen by Dr. Mcnair on 08/18/2018, which was her 2nd Botox injections. She tolerated it well and noted that it lasted several months. The area of greatest activity is on her posterior scalp. PHYSICAL EXAM Vitals:There were no vitals taken for this visit. General: No acute distress. Pleasant and cooperative. Alert and oriented. Skin: Examination limited to the face and scalp per patient request. There is visible perspiration along the posterior, lateral, and frontal hairline. IMPRESSION AND PLAN #1 Primary focal craniofacial hyperhidrosis She had excellent results with her 1st and 2nd injections. We reconstituted 100 units of Botox with [...] will call with any questions or concerns. ?? PROCEDURAL PAUSE Procedural pause conducted to verify: correct patient identity, procedure to be performed, and as applicable, correct side and site, correct patient position, and availability of implants, special equipment, or special requirements. ?? PATIENT EDUCATION Ready to learn. No apparent learning barriers were identified. Learning preferences include listening. Explained diagnosis and treatment plan; patient/guardian of patient expressed understanding of thecontent. Associated attestation - Venkatesh Mcnair M.D. - 08/24/2020 7:43 AM CDT I was present for the entirety of the procedure(s). documented in this encounter Plan of Treatment Scheduled Orders Name Type Priority Associated Diagnoses Order S chedule LAUREL Botox A Dermatology Routine Hyperhidrosis Focal Primary Expected: 08/23/2021 (Approximate), Expires: 08/24/2023 documented as of this encounter Visit Diagnoses Diagnosis Hyperhidrosis Focal Primary documented in this encounter Administered Medications Inactive Administered Medications - up to 3 most recent administrations Medication Order MAR Action Action Date Dose Rate Site onabotulinumtoxinA injection 100 Given 08/23/2020 1:40 PM 100 Un its Units (BOTOX) CDT 100 Units, intradermal, Once, On Bella 08/23/20 at 1300, For 1 dose, Reconstitute in preservative-free saline at 4 cc per 100 units. documented in this encounter
--- OUTSIDE RECORDS SUMMARY | 2021-12-17 07:49 | XMS_ITS | Encounter Summary ---
:1945 Author Organization [facility] Address [address] [place] [address] Care Team Providers Name Role Phone Unavailable Primary Care Provider Unavailable Reason for Visit Outpatient (Routine) - Closed Specialty Diagnoses / Procedures Referred By Contact Refer red To Contact Diagnoses Hyperhidrosis Cristy Khuory M.D. [facility] Procedures LAUREL Botox A [address] [place], [place] [address] Referral ID Status Reason Start Date Expiration Date Visits Requ ested Visits Authorized [id number] Closed 07/04/2017 12/31/2017 1 1 Encounter Details Date Type Department Care Team Description 08/14/2017 Comprehensive Visit Department of Venkatesh Mcnair rhidrosis Dermatology lilia Estrella M.D. (Primary Dx) [place], [facility] [address] [place], [place] [address] [facility] [address] [place], [place] [phone] (Work) [phone] Social History Tobacco Use Types Packs/Day Years Used Date Smoking Tobacco: Never Sex Assigned at Date Recorded Female 08/14/2017 1:34 PM CDT documented as of this encounter Procedure Notes Venkatesh Mcnair M.D. - 08/14/2017 1:30 PM CDT PREOP INDICATION: TREATMENT Date of Surgery: 08/14/2017 Surgeon: Dr. Venkatesh Mcnair M.D. Proposal Specialist: none Location: [place] Bldg:GO Floor:16 Room:[facility] Visit Type: Outpatient PostOp Diagnosis: Primary, focal craniofacial hyperhidrosis Anatomic Location: Posterior, lateral, and frontal scalp Procedure: Botulinum toxin injection Prior to [...] Botox was then injected in divided doses, 2.5 units per injection site with injection site locations at posterior, lateral, and frontal scalp (injection sites). A total of 100 units of Botox was used. A total of 0 units of Botox was wasted (Lot Number: [id number], Expiration Date: 01/2020, No complications. Patient tolerated the procedure well. Postoperative medications: None documented in this encounter Consult Notes Venkatesh Mcnair M.D. - 08/14/2017 1:30 PM CDT HISTORY OF THE PRESENT ILLNESS Nandinijeannenick Keller is a pleasant 72 y.o. female who is seen in consultation at the request of Cristy Khoury M.D. for primary focal craniofacial hyperhidrosis. This has been ongoing for 15-20years. She has had a workup for potential systemic causes and it has been negative to date. She was l ast seen by Dr. Khoury who suggested that she change her anti depressive medications. This has beencompleted by her primary care provider. In the interim she has tried several topical applications including Drysol which is moderately effective for her posterior scalp as well as topical glycopyrrolate for her face. She has not found the topical glycopyrrolate particularly effective. The most problematic areas of sweating are along her posterior hairline and frontal hairline. She also has excessive sweating on the brow central face and upper lip. She is not on any oral antibiotics at the present time. She has never had Botox injections in the past. Current Outpatient Prescriptions: ??? aluminum chloride (DRYSOL) 20 % external solution, Apply 1 application topically at bedtime., Disp: 60 mL, Rfl: 2 ??? aspirin (ADULT LOW DOSE ASPIRIN) [address] tablet, Take 1 tablet by mouth daily., Disp: , Rfl: ??? cholecalciferol (cholecalciferol) 1,000 Unit tablet, Take 2 tablets by mouth daily., Disp: , Rfl: ??? fluticasone propionate (FLOVENT HFA INHL), Inhale 2 Inhalers 2 (two) times a day., Disp: , Rfl: ??? glycopyrrolate in Vanicream 0.5 %, Apply topically 2 (two) times a day. Apply topically to affected areas along hairline and face, Disp: , Rfl: ??? lisinopril-hydroCHLOROthiazide (PRINZIDE,ZESTORETIC) 20-25 mg per tablet, Take 1 tablet by mouthdaily., Disp: , Rfl: ??? mirabegron (MYRBETRIQ) 50 mg 24 hr tablet, Take 1 tablet by mouth daily., Disp: , Rfl: ??? simvastatin (ZOCOR) 40 mg tablet, Take 1 tablet by mouth every evening., Disp: , Rfl: ??? triamterene-hydroCHLOROthiazide (MAXZIDE-25) 37.5-25 mg per tablet, Take 1 tablet by mouth everymorning., Disp: , Rfl: ??? venlafaxine (EFFEXOR) 25 mg tablet, Take 1 tablet by mouth 2 (two) times a day., Disp: , Rfl: ??? venlafaxine XR (EFFEXOR XR) 37.5 mg 24 hr capsule, Take 1-3 capsules by mouth daily. For taper; start with 3 tabs daily for 1 week, then 2 tabs daily for 1 week, then 1 tab daily for 1 week, then stop., Disp: , Rfl: ??? zinc gluconate 50 mg tablet, Take by mouth daily., Disp: , Rfl: Current Facility-Administered Medications: ??? onabotulinumtoxinA injection 100 Units (BOTOX), 100 Units, intradermal, Once, Venkatesh Mcnair M.D. Allergies Allergen Reactions ??? Nickel Itching LW listed the agent as Nickel (food) ??? Penicillins Other (see comments) LW listed: Penicillin Consult; may use penicillin and cephalosporin ??? Thimerosal Itching PAST MEDICAL HISTORY No personal history of neurologic disorders. PHYSICAL EXAM General: Awake, alert, in no acute distress, and with appropriate affect. Skin: Focal examination of the face and scalp was performed. There is visible palpable perspiration along the posterior, lateral common frontal hairline. There are no other skin lesions of concern in the areas examined. IMPRESSION AND PLAN #1 Primary, focal craniofacial hyperhidrosis She has had suboptimal control with topical therapies. She is interested in proceeding with Botox injections today and she has called her insurance carrier and was instructed that Botox should be covered for this condition. We reconstituted 100 units of Botox with 10 cc of saline and injected 40 injections around the periphery of her hairline including the frontal, lateral, and posterior scalp. She tolerated the procedure well. She was advised full effect would likely take approximately 2 weeks. We will plan to see her back in approximately 6-8 months for repeat injections. She will call with any questions or concerns. documented in this encounter Plan of Treatment Not on filedocumented as of this encounter Visit Diagnoses Diagnosis Hyperhidrosis - Primary documented in this encounter
--- OUTSIDE RECORDS SUMMARY | 2021-12-17 07:49 | XMS_ITS | Encounter Summary ---
:1945 Author Organization [facility] Address [address] [place] [address] Care Team Providers Name Role Phone Unavailable Primary Care Provider Unavailable Encounter Details Date Type Department Care Team Description 06/25/2011 Hospital Encounter HX NO MAPPING Social History [...]
--- OUTSIDE RECORDS SUMMARY | 2021-12-17 07:49 | XMS_ITS | Encounter Summary ---
:1945 Author Organization [facility] Address [address] [place] [address] Care Team Providers Name Role Phone Unavailable Primary Care Provider Unavailable Reason for Visit Reason Onset Date Comments Reschedule 10/21/2017 Encounter Details Date Type Department Care Team Description 10/21/2017 Clinical Communication Department of Cristy Khoury Reschedule Dermatology in N, M.D. [place], [place] [address] [facility] [address] [place] [phone] Social History Tobacco Use Types Packs/Day Years Used Date Smoking Tobacco: Never Sex Assigned at Date Recorded Female 08/14/2017 1:34 PM CDT documented as of this encounter Miscellaneous Notes Telephone Encounter - Tianna Burrows - 10/21/2017 12:09 PM CDT Patient submitted an Automated Appointment Reminder to reschedule appointments. Please contact the patient to determine which appointments to update and reschedule as appropriate. Thank you. documented in this encounter Plan of Treatment Not on filedocumented as of this encounter Visit Diagnoses Not on filedocumented in this encounter
--- OUTSIDE RECORDS SUMMARY | 2021-12-17 07:49 | XMS_ITS | Encounter Summary ---
:1945 Author Organization [facility] Address [address] [place] [address] Care Team Providers Name Role Phone Unavailable Primary Care Provider Unavailable Reason for Referral Outpatient (Routine) - Closed Specialty Diagnoses / Procedures Referred By Contact Refer red To Contact Diagnoses Hyperhidrosis Focal Primary Venkatesh Mcnair M.D. [facility] Procedures LAUREL Botox A [address] [place] [address] Referral ID Status Reason Start Date Expiration Date Visits Requ ested Visits Authorized [id number] Closed 07/16/2020 07/17/2023 1 1 Encounter Details Date Type Department Care Team Description 07/16/2020 Orders Only Department of Venkatesh Mcnair Hyperhid rosis Focal Dermatology in [place] Primary (Primary Dx) [place], [place] [address] [facility] [address] [place] [phone] Social History Tobacco Use Types Packs/Day Years Used Date Smoking Tobacco: Never Sex Assigned at Date Recorded Female 08/14/2017 1:34 PM CDT documented as of this encounter Plan of Treatment Scheduled Orders Name Type Priority Associated Diagnoses Order S chedule LAUREL Botox A Dermatology Routine Hyperhidrosis Focal Primary Expected: 07/16/2020 (Approximate), Expires: 07/17/2023 documented as of this encounter Visit Diagnoses Diagnosis Hyperhidrosis Focal Primary - Primary documented in this encounter
--- OUTSIDE RECORDS SUMMARY | 2021-12-17 07:49 | XMS_ITS | Encounter Summary ---
:1945 Author Organization [facility] Address [address] [place] [address] Care Team Providers Name Role Phone Unavailable Primary Care Provider Unavailable Encounter Details Date Type Department Care Team Description 08/09/2019 Orders Only Department of Venkatesh Mcnair Hyperhid rosis Focal Dermatology in M.D. Primary (Primary Dx) [place], [place] [address] [facility] [address] [place] [phone] Social History Tobacco Use Types Packs/Day Years Used Date Smoking Tobacco: Never Sex Assigned at Date Recorded Female 08/14/2017 1:34 PM CDT documented as of this encounter Plan of Treatment Not on filedocumented as of this encounter Visit Diagnoses Diagnosis Hyperhidrosis Focal Primary - Primary documented in this encounter
--- OUTSIDE RECORDS SUMMARY | 2021-12-17 07:49 | XMS_ITS | Encounter Summary ---
:1945 Author Organization [facility] Address [address] [place] [address] Care Team Providers Name Role Phone Unavailable Primary Care Provider Unavailable Encounter Details Date Type Department Care Team Description 03/23/2005 - Hospital Encounter HX RST SLEEP FLOOR [place] 03/30/2005 PRACTICE Dio [place] Social History Tobacco Use Types Packs/Day Years Used Date Smoking Tobacco: Never Assessed Sex Assigned at Date Recorded Female 08/14/2017 1:34 PM CDT documented as of this encounter Plan of Treatment Not on filedocumented as of this encounter Visit Diagnoses Not on filedocumented in this encounter
[2021-12-17 10:59] LABS: Albumin* 4.3 g/dL (3.3-5.0); Chloride* 102 mmol/L (96-114); Sodium* 139 mmol/L (135-149)
[2021-12-17 11:00] LABS: Potassium* 4.5 mmol/L (3.6-5.1)
[2021-12-17 11:02] LABS: Aspartate Amino Transferase* 28 U/L (12-35); Bilirubin Total* 0.4 mg/dL (0.1-1.5); Blood Urea Nitrogen* 25 mg/dL (7-30); Carbon Dioxide* 28 mmol/L (20-32); Cholesterol* 181 mg/dL (90-199); Creatinine* 0.7 mg/dL (0.5-1.5); Estimated Glomerular Filt Rate 90 ml/min; Glucose* 158 mg/dL (60-115); Total Protein* 6.5 g/dL (6.0-8.3); Triglycerides* 291 mg/dL (40-149)
[2021-12-17 11:03] LABS: Alanine Aminotransferase* 34 U/L (4-35); Alkaline Phosphatase* 65 U/L (40-150); Calcium* 9.5 mg/dL (8.4-10.6); HDL Cholesterol* 45 mg/dL (>=50); LDL Cholesterol Calculated 78 mg/dL (<100)
[2021-12-17 11:09] LABS: Creatinine Urine 169.5 mg/dL
[2021-12-17 11:14] LABS: Microalbumin Creatinine Ratio 20 mg/g (0-30); Microalbumin Urine 4 mg/dL
== END 2021-12-17 16:42 | disposition home or self-care (01) ==
PROVIDERS: PCP Internal Medicine; Visit Provider Internal Medicine
DX: E11.9 Type 2 diabetes mellitus without complications (principal); I10 Essential (primary) hypertension; Z13.6 Encounter for screening for cardiovascular disorders; E03.9 Hypothyroidism, unspecified
CPT/HCPCS: 80053; 80061; 82043; 82570

== ENCOUNTER 2022-09-29 07:40 | Outpatient (CLI) | payer MEDICARE, BC, SELFPAY | END 2022-09-29 07:41 | disposition home or self-care (01) | LOC: NFLDREF 13:05 | PROVIDERS: PCP Internal Medicine; Referring Provider Internal Medicine; Visit Provider Internal Medicine | DX: Z00.00 Encounter for general adult medical examination without abnormal findings (principal); E66.9 Obesity, unspecified; E11.9 Type 2 diabetes mellitus without complications; E03.9 Hypothyroidism, unspecified; I10 Essential (primary) hypertension; Z13.9 Encounter for screening, unspecified; Z13.6 Encounter for screening for cardiovascular disorders | CPT/HCPCS: 80048; 80061; 82043; 82570; 84443 ==

== ENCOUNTER 2023-01-13 16:17 | Outpatient (CLI) | payer MEDICARE, BC, SELFPAY | END 2023-01-13 16:18 | disposition home or self-care (01) | PROVIDERS: PCP Internal Medicine; Visit Provider Internal Medicine | DX: I10 Essential (primary) hypertension (principal); E03.9 Hypothyroidism, unspecified; E11.9 Type 2 diabetes mellitus without complications; R53.83 Other fatigue; E66.9 Obesity, unspecified | CPT/HCPCS: 80053; 84443; 87086 ==

== ENCOUNTER 2023-06-05 07:40 | Outpatient (CLI) | payer MEDICARE, BC, SELFPAY | END 2023-06-05 07:41 | disposition home or self-care (01) | LOC: NFLDREF 06-08 07:01 | PROVIDERS: PCP Internal Medicine; Referring Provider Internal Medicine; Visit Provider Internal Medicine | DX: E03.9 Hypothyroidism, unspecified (principal); E11.9 Type 2 diabetes mellitus without complications; I10 Essential (primary) hypertension; Z79.84 Long term (current) use of oral hypoglycemic drugs | CPT/HCPCS: 80053; 80061; 82043; 82570; 84439; 84443 ==

== ENCOUNTER 2023-11-13 08:04 | Outpatient (CLI) | payer MEDICARE, BC, SELFPAY ==
--- OUTSIDE RECORDS SUMMARY | 2023-11-13 11:10 | XMS_ITS | Clinical Summary ---
Author Organization [facility] Address [address] [place] [address] Care Team Providers Care Flow Floor Attendant Name Role Phone Corey Josue MD Primary Care Provider Senthil Bravo DPM Unavailable [phone] Allergies Active Allergy Reactions Criticality Noted Date Comments Adhesive Tape Itching 01/12/2018 Nickel Itching 01/12/2018 Thimerosal (Thiomersal) Itching 01/12/2018 Medications Medication Sig Dispensed Refills Start Date End Date Status lisinopril-hydroch lorothiazide (PRINZIDE/ZESTORET IC) 20-25 MG per tablet Take 1 tablet by mouth daily Active ZOLPIDEM TARTRATE PO Take 10 mg by mouth nightly as needed for sleep Active MIRABEGRON ER PO Take 50 mg by mouth daily Active CLONIDINE HCL PO Take 0.2 mg by mouth daily Active SIMVASTATIN PO Take 40 mg by mouth At Bedtime Active VITAMIN D, CHOLECALCIFEROL, PO Take 1,000 Units by mouth daily Active ASPIRIN PO Take 81 mg by mouth daily Active fluticasone (FLOVENT HFA) 220 MCG/ACT Inhaler Inhale 1 puff into the lungs 2 times daily Active oxyCODONE IR (ROXICODONE) 5 MG tabletIndications: OAB (overactive bladder) Take 1 tablet (5 mg) by mouth every 6 hours as needed for pain 12 tablet 01/13/2018 Active ALBUTEROL SULFATE IN Active albuterol (PROAIR HFA/PROVENTIL HFA/VENTOLIN HFA) 108 (90 Base) MCG/ACT inhaler Inhale 2 puffs into the lungs as needed for shortness of breath, wheezing or cough Active albuterol (PROVENTIL) (2.5 MG/3ML) 0.083% neb solution Take 2.5 mg by nebulization every 6 hours as needed for shortness of breath, wheezing or cough Active amLODIPine (NORVASC) 2.5 MG tablet Take 2.5 mg by mouth daily Active buPROPion (WELLBUTRIN XL) 300 MG 24 hr tablet Take 300 mg by mouth every morning Active famotidine (PEPCID) 20 MG tablet Take 20 mg by mouth Activ e metFORMIN (GLUCOPHAGE) 500 MG tablet Take 500 mg by mouth 2 times daily (with meals) Active ibuprofen (ADVIL/MOTRIN) 600 MG tabletIndications: Acute post-operative pain Take 1 tablet (600 mg) by mouth every 6 hours as needed 28 tablet 1 06/30/2023 Active acetaminophen (TYLENOL) 500 MG tabletIndications: Acute post-operative pain Take 1-2 tablets (500-1,000 mg) by mouth every 8 hours as needed for mild pain 42 tablet 06/30/2023 Active Social History Tobacco Use Types Packs/Day Years Used Date Smoking Tobacco: Never Smokeless Tobacco: Never Tobacco Cessation:Counseling Given: Not Answered Alcohol Use Standard Drinks/Week Comments Yes 0 (1 standard drink = 0.6 oz pur e alcohol) rare PHQ-2 Answer Date Recorded PHQ-2 Score 0 05/14/2023 Adolescent Education Answer Date Record ed Getting School Help Needed Not on file 04/27 Sex and Gender Information Value Date Recorded Sex Assigned at Not on file Gender Identity Not on file Sexual Orientation Not on file Last Filed Vital Signs Vital Sign Reading Time Taken Comments Blood Pressure 132/70 07/16/2023 1:53 PM CDT Pulse 63 06/30/2023 9:15 AM CDT Temperature 36.6 ??C (97.8 ??F) 06/30/2023 10:05 AM C DT Respiratory Rate 14 06/30/2023 10:05 AM CDT Oxygen Saturation 95% 06/30/2023 10:05 AM CDT Inhaled Oxygen Concentration - - Weight 91.2 kg (201 lb) 07/16/2023 1:53 PM CDT Height 165.1 cm (5' 5) 06/30/2023 5:53 AM CDT Body Mass Index 33.45 06/30/2023 5:53 AM CDT Plan of Treatment Health Maintenance Due Date Last Done Comments ADVANCE CARE PLANNING 1946 ANNUAL REVIEW OF HM ORDERS 1946 DEXA 1946 GLUCOSE 1946 LIPID 1946 MAMMO SCREENING 1946 HEPATITIS C SCREENING 01/04/1964 RSV VACCINE (1 - 1-dose 60+ series) 2006 FALL RISK ASSESSMENT 2011 MEDICARE ANNUAL WELLNESS VISIT 2011 INFLUENZA VACCINE (#1) 2023 , 01/17/2022, 01/07/2021, Additional history exists DTAP/TDAP/TD IMMUNIZATION (3 - Td or Tdap) 09/30/2032 09/30/2022, 01/28/2011 Pneumococcal Vaccine: 65+ Years Completed 10/29/2015, 06/26/2014, 06/26/2014, Additional history exists ZOSTER IMMUNIZATION Completed 07/19/2019, 03/23/2019, 09/14/2006 PHQ-2 (once per calendar year) Completed 05/14/2023 COVID-19 Vaccine Completed 05/30/2023, 01/2023, 08/11/2022, Additional history exists HPV IMMUNIZATION Aged Out No longer e ligible based on patient's age to complete this topic MENINGITIS IMMUNIZATION Aged Out No l onger eligible based on patient's age to complete this topic RSV MONOCLONAL ANTIBODY Aged Out No l onger eligible based on patient's age to complete this topic Medical Devices Implanted Type Area Manager Managed Care Device Identifier Shelf Expiration Date Model / Serial / Lot Stimulator Neuro Inter-Stim [id number] Implanted:Qty: 1 on 01/13/2018 by Allen Balderrama MD at [facility] Neurology device Left: Sacrum [employer] 02/26/2019 3058 / [id number] / Explanted Type Area Manager Managed Care Device Identifier Shelf Expiration Date Model / Serial / Lot Interstim Neurotransmitter Explanted:Qty: 1 on 01/13/2018 at [facility] Left: Sacrum Care Teams Flow Floor Attendant Relationship Specialty Start Date End Date Corey Josue MD [facility] [address] [place] [address] PCP - General Emergency Medicine 12/30/17 Senthil Bravo DPM [id number] [facility] [address] [place] [address] Assigned Surgical Provider 05/29/23
--- OUTSIDE RECORDS SUMMARY | 2023-11-13 11:10 | XMS_ITS | Clinical Summary ---
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 Unknown-Follow Up Needed (Include Details In Comments) Itching 09/18/2012 thermerosol Medications Medication Sig Dispensed Refills Start Date End Date Status cloNIDine (CATAPRES) 0.2 mg tablet Take 0.2 mg by mouth 2 times daily. Active FLUTICASONE PROPIONATE (FLOVENT HFA INHL) Inhale 2 Puffs by mouth 2 times daily. Active Levothyroxine 50 mcg cap Take 1 Cap by mouth once daily. Active zolpidem (AMBIEN) 10 mg tablet Take 10 mg by mouth at bedtime if needed. Active estradiol (VAGIFEM) 10 mcg tab vaginal tablet Insert 10 mcg into the vagina once daily. Twice a week as directed Active aspirin chewable 81 mg chewable tablet Take 81 mg by mouth once daily with a meal. Take 1 tablet by mouth daily Active cholecalciferol (VITAMIN D3) 1,000 unit capsule Take 2,000 Units by mouth once daily. Active albuterol (PROVENTIL; VENTOLIN) 5 mg/mL (0.5%) neb solution Inhale 2.5 mg via a nebulizer every 4 hours if needed. Active lisinopril-hydrochlor othiazide, 20-25 mg, (PRINZIDE ZESTORETIC) 20-25 mg per tablet Take 1 tablet by mouth once daily. Active mirabegron EXTENDED-release (MYRBETRIQ) 50 mg tablet Take 50 mg by mouth once daily. Active venlafaxine (EFFEXOR XR) 150 mg Extended-Release capsule Take 150 mg by mouth once daily with a meal. Active zinc gluconate 50 mg tablet Take 50 mg by mouth once daily. Active simvastatin (ZOCOR) 40 mg tablet Take 40 mg by mouth at bedtime. Active escitalopram oxalate (LEXAPRO) 10 mg tablet Take 10 mg by mouth once daily. 3 07/30/2017 Active fluvoxaMINE (LUVOX) 100 mg tablet Take 1 tablet by mouth at bedtime. Take one and one half capsule daily 0 10/20/2019 Active Active Problems Problem Noted Date Diagnosed Date History of right breast cancer 10/20/2019 [...] Date Smoking Tobacco: Never Smokeless Tobacco: Never Alcohol Use Standard Drinks/Week Comments Yes 1 (1 standard drink = 0.6 oz pur e alcohol) occasional Social Connections Answer Date Recorded Frequency of Communication with Friends and Fami ly Not on file 03/16/2021 Financial Resource Strain Answer Date R ecorded Difficulty of Paying Living Expenses Not on file 03/16/2021 Difficulty of Paying Living Expenses Not on file 03/16/2021 Sex and Gender Information Value Date Recorded Sex Assigned at Not on file Gender Identity Not on file Sexual Orientation Not on file Obstetrics History Last Filed Vital Signs Vital Sign Reading Time Taken Comments Blood Pressure 177/75 10/20/2019 10:03 AM CDT Pulse 63 10/20/2019 10:03 AM CDT Temperature 37.4 ??C (99.4 ??F) 10/20/2019 10:03 AM C DT Respiratory Rate 18 10/20/2019 10:03 AM CDT Oxygen Saturation 95% 10/18/2015 9:13 AM CDT Inhaled Oxygen Concentration - - Weight 96.8 kg (213 lb 8 oz) 10/20/2019 10:03 AM CDT Height 167.6 cm (5' 6) 10/20/2019 10:03 AM CDT Body Mass Index 34.46 10/20/2019 10:03 AM CDT Plan of Treatment Health Maintenance Due Date Last Done Comments Tdap 1957 Depression screening for age 12+ 1958 Hepatitis C screening for ag e 18-79 01/04/1964 Tetanus booster 1966 Zoster (shingles) series for age 50+ (1 of 2) 01/04/1996 DEXA/DXA scan for age 65+ 2011 Medicare Wellness for age 65+ 2011 Pneumococcal series for age 65+ (1 of 1 - PCV) 2011 01/13/2012 BMI (ht and wt on same day) for age 18+ 10/19/2020 10/20/2019, 10/15/2018, 10/16/2017, Additional history exists COVID-19 vaccine series ( season) 2022 Influenza for age 65+ 11/15/2023 Medical Devices Implanted Type Area Satellite Communications Engineer Device Identifier Shelf Expiration Date Model / Serial / Lot [id number] hydration plant operator Tissue Seb Palafox Ht W/Sut Tab 450cc [[id number]] Implanted:Qty: 1 on 09/21/2012 at [facility] Explanted:at [facility] (Quantity not on file) Right: Breast [employer] [id number]# / [id number] hydration plant operator Tissue Seb Palafox Ht W/Sut Tab 450cc [[id number]] Implanted:Qty: 1 on 09/21/2012 at [facility] Explanted:at [facility] (Quantity not on file) Left: Breast [employer] [id number]# / [id number] / [id number] graft Alloderm 8x16cm Ready To Use [[id number]][[id number]] Implanted:Qty: 1 on 09/21/2012 at [facility] Left: Breast [employer] [id number]# / [id number] / [id number] graft Alloderm 8x16cm Ready To Use [[id number]][[id number]] Implanted:Qty: 1 on 09/21/2012 at [facility] Right: Breast [employer] [id number]# / [id number] / [id number] [id number] Mammary 350-5504bc [[id number]][[id number]] Implanted:Qty: 1 on 01/11/2013 at [facility] Left: Breast [employer] [id number] # / [id number] [id number] Mammary 350-5504bc [[id number]][[id number]] Implanted:Qty: 1 on 01/11/2013 at [facility] Right: Breast [employer] [id number] # / [id number] Advance Directives * Full Code (Latest Code Status on File) Date Activated Date Inactivated Comments 01/25/2013 10:06 AM 01/26/2013 2:26 AM * Full Code Date Activated Date Inactivated Comments 01/11/2013 7:00 AM 01/11/2013 3:02 PM * Full Code Date Activated Date Inactivated Comments 09/21/2012 6:52 PM 09/22/2012 4:34 PM * Full Code Date Activated Date Inactivated Comments 09/21/2012 9:45 AM 09/21/2012 6:52 PM * Full Code Date Activated Date Inactivated Comments 09/20/2012 5:09 PM 09/21/2012 9:45 AM Care Teams Wheel Press Operator Relationship Specialty Start Date End Date Corey Josue MD [address] [place] [id number] PCP - General 10/05/12
--- OUTSIDE RECORDS SUMMARY | 2023-11-13 11:10 | XMS_ITS | Referral Summary ---
Author Organization [facility] Address [address] [place] [address] Care Team Providers Care Wire Bound Box Machine Helper Name Role Phone Corey Josue MD Primary Care Provider Senthil Bravo DPM Unavailable [phone] Allergies Active Allergy Reactions Criticality Noted Date [...] 06/30/2023 5:53 AM CDT Plan of Treatment Not on file Medical Devices Implanted Type Area Drywall Finishing Foreman Device Identifier Shelf Expiration Date Model / Serial / Lot Stimulator Neuro Inter-Stim [id number] Implanted:Qty: 1 on 01/13/2018 by Allen Balderrama MD at [facility] Neurology device Left: Sacrum [employer] 02/26/2019 3058 / [id number] / Explanted Type Area Drywall Finishing Foreman Device Identifier Shelf Expiration Date Model / Serial / Lot Interstim Neurotransmitter Explanted:Qty: 1 on 01/13/2018 at [facility] Left: Sacrum Care Teams Wire Bound Box Machine Helper Relationship Specialty Start Date End Date Corey Josue MD [facility] [address] [place] [address] PCP - General Emergency Medicine 12/30/17 eSnthil Bravo DPM [id number] [facility] [address] [place] [address] Assigned Surgical Provider 05/29/23
== END 2023-11-13 08:05 | disposition home or self-care (01) ==
LOC: NFLDREF 11:08
PROVIDERS: PCP Internal Medicine; Referring Provider Internal Medicine; Visit Provider Internal Medicine
DX: E03.9 Hypothyroidism, unspecified (principal); E11.9 Type 2 diabetes mellitus without complications; R53.83 Other fatigue; I10 Essential (primary) hypertension; E66.9 Obesity, unspecified
CPT/HCPCS: 80053; 80061; 82043; 82570; 84443

== ENCOUNTER 2024-05-02 09:38 | Outpatient (CLI) | payer MEDICARE, BC, SELFPAY | END 2024-05-02 09:39 | disposition home or self-care (01) | LOC: NFLDREF 05-04 07:17 | PROVIDERS: PCP Internal Medicine; Referring Provider Internal Medicine; Visit Provider Internal Medicine | DX: E11.9 Type 2 diabetes mellitus without complications (principal); E03.9 Hypothyroidism, unspecified; I10 Essential (primary) hypertension; Z79.84 Long term (current) use of oral hypoglycemic drugs; Z13.220 Encounter for screening for lipoid disorders | CPT/HCPCS: 80053; 80061; 82043; 82570; 84439; 84443 ==

== ENCOUNTER 2024-11-10 07:30 | Outpatient (CLI) | payer MEDICARE, BC, SELFPAY | END 2024-11-10 07:31 | disposition home or self-care (01) | LOC: NFLDREF 11-12 22:57 | PROVIDERS: PCP Internal Medicine; Referring Provider Internal Medicine; Visit Provider Internal Medicine | DX: E03.9 Hypothyroidism, unspecified (principal); E11.9 Type 2 diabetes mellitus without complications; I10 Essential (primary) hypertension; E78.5 Hyperlipidemia, unspecified | CPT/HCPCS: 80053; 80061; 84443 ==